=== PATIENT | male | born 1950 | race Caucasian/White ===

== ENCOUNTER 2017-09-21 17:37 | Inpatient (IN) | payer MEDICARE ==
[~2017-09-21] VITALS: Ht 175.3 cm; Wt 80.4 kg
[~2017-09-21 17:37] MED LIST: ALPR1; AMLO10 PO; AMLO5 PO; BUTASPCAF PO; DIAZ10 PO; GABA100 PO; HYDACE5 PO; HYDCHL25; HYDCHL25 PO; HYDMOR8 PO; IBUHYD PO; IBUP800 PO; Inderal 20 mg T20 MG PO; LISI20; META800 PO; METO50; METO50 PO; MIRT15; MIRT30; MORP10S; MORP30; NIFE10 PO; ONDA4ODT MM; OXYC10ER; OXYC80ER PO; Oxycontin60 MG PO; PARO20 PO; PENT400ER PO; RXHYDACE PO; Zofran Odt4 MG PO
[2017-09-21 18:11] LABS: BASOPHILS ABSOLUTE AUTO 0.04 K/mm3 (0.00-0.23); BASOPHILS PERCENT AUTO 0 % (0-2); EOSINOPHILS ABSOLUTE AUTO 0.25 K/mm3 (0.00-0.68); EOSINOPHILS PERCENT AUTO 3 % (0-6); Hematocrit 47.7 % (37.0-53.0); Hemoglobin 15.5 g/dL (13.5-17.5); IMMATURE GRAN ABSOLUTE AUTO 0.02 K/mm3 (0.00-0.10); IMMATURE GRAN PERCENT AUTO 0 % (0-1); LYMPHOCYTES ABSOLUTE AUTO 2.33 K/mm3 (0.84-5.20); LYMPHOCYTES PERCENT AUTO 25 % (21-46); MONOCYTES ABSOLUTE AUTO 0.84 K/mm3 (0.16-1.47); MONOCYTES PERCENT AUTO 9 % (4-13); Mean Corpuscular HGB 30.8 pg (26.0-34.0); Mean Corpuscular HGB Conc 32.5 g/dL (31.5-36.5); Mean Corpuscular Volume 95 fL (80-100); Mean Platelet Volume 9.7 fL (9.1-12.4); NEUTROPHILS ABSOLUTE AUTO 5.73 K/mm3 (1.96-9.15); NEUTROPHILS PERCENT AUTO 62 % (41-73); Platelet Count 330 K/mm3 (150-400); RDW Coefficient Variation 13.2 % (11.7-14.2); RDW Standard Deviation 46.2 fL (35.1-46.3); Red Blood Cell Count 5.04 M/mm3 (4.30-5.90); White Blood Cell Count 9.21 K/mm3 (4.00-11.30)
[2017-09-21 18:33] LABS: Alanine Aminotransfer (ALT/SGP 19 U/L (12-78); Albumin, Blood 3.8 g/dL (3.4-5.0); Albumin/Globulin Ratio 0.9 (0.8-1.8); Alk Phos 116 U/L (50-136); Anion Gap 5 mmol/L (6-16); Aspartate Aminotrans (AST/SGOT 13 U/L (12-37); Bilirubin, Total 0.2 mg/dL (0.1-1.0); Blood Urea Nitrogen 14 mg/dL (8-24); Bun/Creatinine Ratio 18.6 (12.0-20.0); CO2, Blood 28 mmol/L (21-32); Calcium, Blood 10.1 mg/dL (8.5-10.1); Chloride, Blood 111 mmol/L (98-108); Creatinine, Blood 0.75 mg/dL (0.60-1.20); Globulin, Blood 4.3 g/dL (2.2-4.0); Glomerular Filtration Rate >60 (60-); Glucose, Blood 123 mg/dL (70-99); Potassium, Blood 4.6 mmol/L (3.5-5.5); Sodium, Blood 144 mmol/L (136-145); Total Protein, Blood 8.1 g/dL (6.4-8.2)
[2017-09-21] MEDS ORDERED: Norvasc10 MG PO (23:28)
[2017-09-21 23:39] LABS: Source, Urine Clean Catch
[2017-09-21 23:45] LABS: Bilirubin, Urine Neg (Neg); Blood, Urine Neg (Neg); Glucose Qualitative, Urine Neg (Neg); Ketones, Urine Neg (Neg); Leukocyte Esterase, Urine Neg (Neg); Nitrite, Urine Neg (Neg); Protein, Urine Neg (Neg); Specific Gravity, Urine 1.015 (1.003-1.022); Urobilinogen, Urine NORM (Normal)
[2017-09-21 23:47] LABS: Appearance, Urine Clear (Clear); Color, Urine Yellow (P-Yellow)
[2017-09-22 08:21] LABS: BASOPHILS ABSOLUTE AUTO 0.05 K/mm3 (0.00-0.23); BASOPHILS PERCENT AUTO 1 % (0-2); EOSINOPHILS ABSOLUTE AUTO 0.25 K/mm3 (0.00-0.68); EOSINOPHILS PERCENT AUTO 3 % (0-6); Hematocrit 44.9 % (37.0-53.0); Hemoglobin 14.7 g/dL (13.5-17.5); IMMATURE GRAN ABSOLUTE AUTO 0.02 K/mm3 (0.00-0.10); IMMATURE GRAN PERCENT AUTO 0 % (0-1); LYMPHOCYTES ABSOLUTE AUTO 2.24 K/mm3 (0.84-5.20); LYMPHOCYTES PERCENT AUTO 25 % (21-46); MONOCYTES PERCENT AUTO 11 % (4-13); Mean Corpuscular HGB 30.7 pg (26.0-34.0); Mean Corpuscular HGB Conc 32.7 g/dL (31.5-36.5); Mean Corpuscular Volume 94 fL (80-100); Mean Platelet Volume 9.2 fL (9.1-12.4); NEUTROPHILS ABSOLUTE AUTO 5.33 K/mm3 (1.96-9.15); NEUTROPHILS PERCENT AUTO 60 % (41-73); Platelet Count 328 K/mm3 (150-400); RDW Coefficient Variation 13.1 % (11.7-14.2); RDW Standard Deviation 45.1 fL (35.1-46.3); Red Blood Cell Count 4.79 M/mm3 (4.30-5.90); White Blood Cell Count 8.89 K/mm3 (4.00-11.30)
[2017-09-22 08:58] LABS: Anion Gap 5 mmol/L (6-16); Blood Urea Nitrogen 15 mg/dL (8-24); Bun/Creatinine Ratio 22.2 (12.0-20.0); CO2, Blood 25 mmol/L (21-32); Calcium, Blood 8.9 mg/dL (8.5-10.1); Chloride, Blood 113 mmol/L (98-108); Creatinine, Blood 0.68 mg/dL (0.60-1.20); Glomerular Filtration Rate >60 (60-); Glucose, Blood 104 mg/dL (70-99); Sodium, Blood 143 mmol/L (136-145)
[2017-09-23 04:27] LABS: Anion Gap 7 mmol/L (6-16); Blood Urea Nitrogen 15 mg/dL (8-24); Bun/Creatinine Ratio 21.2 (12.0-20.0); CO2, Blood 25 mmol/L (21-32); Calcium, Blood 9.2 mg/dL (8.5-10.1); Chloride, Blood 108 mmol/L (98-108); Creatinine, Blood 0.71 mg/dL (0.60-1.20); Glomerular Filtration Rate >60 (60-); Glucose, Blood 97 mg/dL (70-99); Potassium, Blood 3.8 mmol/L (3.5-5.5); Sodium, Blood 140 mmol/L (136-145)
[2017-09-23] MEDS ORDERED: ASPI325 PO (08:35)
[2017-09-23] MEDS ORDERED: ATOR10 PO (08:35)
[2017-09-23] MEDS ORDERED: LOSA25 PO (08:35)
== END 2017-09-23 10:45 | disposition home or self-care (01) | DRG 69 ==
LOC: ER 17:37 → SURS 17:38
PROVIDERS: Emergency Medicine; Family Medicine; Hospitalist
DX: G45.9 Transient cerebral ischemic attack, unspecified (principal); I16.0 Hypertensive urgency; I10 Essential (primary) hypertension; I25.10 Atherosclerotic heart disease of native coronary artery without angina pectoris; M19.90 Unspecified osteoarthritis, unspecified site; Z66 Do not resuscitate; R51 Headache; F17.200 Nicotine dependence, unspecified, uncomplicated; Z88.2 Allergy status to sulfonamides; Z86.73 Personal history of transient ischemic attack (TIA), and cerebral infarction without residual deficits; Z87.891 Personal history of nicotine dependence; Z91.14 Patient's other noncompliance with medication regimen
CPT/HCPCS: 36415; 70450; 71046; 80048; 80053; 81003; 85025; 93005; 93010; 93306; 93880; J0360; J1650; Q0163

== ENCOUNTER 2018-05-29 05:31 | Emergency (ER) | payer MEDICARE ==
[~2018-05-29] VITALS: Ht 175.3 cm; Wt 74.8 kg
[~2018-05-29 05:31] MED LIST changes: +ASPI325 PO; +ATOR10 PO; +Hair, Skin & N1 EACH PO; +LOSA25 PO; +Norvasc10 MG PO; +THIA100 PO
[2018-05-29 05:42] LABS: BASOPHILS ABSOLUTE AUTO 0.04 K/mm3 (0.00-0.23); BASOPHILS PERCENT AUTO 0 % (0-2); EOSINOPHILS ABSOLUTE AUTO 0.26 K/mm3 (0.00-0.68); EOSINOPHILS PERCENT AUTO 3 % (0-6); Hematocrit 47.5 % (37.0-53.0); Hemoglobin 15.9 g/dL (13.5-17.5); IMMATURE GRAN ABSOLUTE AUTO 0.05 K/mm3 (0.00-0.10); IMMATURE GRAN PERCENT AUTO 1 % (0-1); LYMPHOCYTES ABSOLUTE AUTO 2.17 K/mm3 (0.84-5.20); LYMPHOCYTES PERCENT AUTO 22 % (21-46); MONOCYTES ABSOLUTE AUTO 0.83 K/mm3 (0.16-1.47); MONOCYTES PERCENT AUTO 8 % (4-13); Mean Corpuscular HGB 33.1 pg (26.0-34.0); Mean Corpuscular HGB Conc 33.5 g/dL (31.5-36.5); Mean Corpuscular Volume 99 fL (80-100); Mean Platelet Volume 9.2 fL (9.1-12.4); NEUTROPHILS ABSOLUTE AUTO 6.67 K/mm3 (1.96-9.15); NEUTROPHILS PERCENT AUTO 67 % (41-73); Platelet Count 314 K/mm3 (150-400); RDW Coefficient Variation 14.8 % (11.7-14.2); RDW Standard Deviation 54.3 fL (35.1-46.3); White Blood Cell Count 10.02 K/mm3 (4.00-11.30)
[2018-05-29 06:04] LABS: Alanine Aminotransfer (ALT/SGP 24 U/L (12-78); Albumin, Blood 3.7 g/dL (3.4-5.0); Albumin/Globulin Ratio 0.9 (0.8-1.8); Alk Phos 96 U/L (50-136); Anion Gap 11 mmol/L (6-16); Aspartate Aminotrans (AST/SGOT 21 U/L (12-37); Bilirubin, Total 0.4 mg/dL (0.1-1.0); Blood Urea Nitrogen 8 mg/dL (8-24); Bun/Creatinine Ratio 10.9 (12.0-20.0); CO2, Blood 22 mmol/L (21-32); Calcium, Blood 8.6 mg/dL (8.5-10.1); Chloride, Blood 107 mmol/L (98-108); Creatinine, Blood 0.74 mg/dL (0.60-1.20); Globulin, Blood 4.3 g/dL (2.2-4.0); Glomerular Filtration Rate >60 (60-); Glucose, Blood 88 mg/dL (70-99); Potassium, Blood 3.8 mmol/L (3.5-5.5); Sodium, Blood 140 mmol/L (136-145); Troponin I <0.015 ng/mL (0.000-0.040)
[2018-05-29] MEDS ORDERED: IBUP400 PO (06:34)
[2018-05-29] MEDS ORDERED: Vistaril50 MG PO (06:34)
== END 2018-05-29 07:07 | disposition home or self-care (01) ==
LOC: ER 05:31
PROVIDERS: Emergency Medicine
DX: R07.2 Precordial pain (principal); I10 Essential (primary) hypertension; F17.210 Nicotine dependence, cigarettes, uncomplicated; Z91.030 Bee allergy status; Z88.2 Allergy status to sulfonamides; Z86.73 Personal history of transient ischemic attack (TIA), and cerebral infarction without residual deficits
CPT/HCPCS: 71046; 80053; 83690; 84484; 85025; 93005; 93010; 96374; 99284-25; J1885

== ENCOUNTER 2018-07-07 00:36 | Inpatient (IN) | payer MEDICARE ==
[~2018-07-07] VITALS: Ht 175.3 cm; Wt 72.9 kg
[~2018-07-07 00:36] MED LIST changes: +IBUP400 PO; +Vistaril50 MG PO
[2018-07-07 01:16] LABS: BASOPHILS ABSOLUTE AUTO 0.04 K/mm3 (0.00-0.23); BASOPHILS PERCENT AUTO 0 % (0-2); EOSINOPHILS ABSOLUTE AUTO 0.29 K/mm3 (0.00-0.68); EOSINOPHILS PERCENT AUTO 3 % (0-6); Hemoglobin 16.1 g/dL (13.5-17.5); IMMATURE GRAN ABSOLUTE AUTO 0.03 K/mm3 (0.00-0.10); IMMATURE GRAN PERCENT AUTO 0 % (0-1); LYMPHOCYTES ABSOLUTE AUTO 1.88 K/mm3 (0.84-5.20); LYMPHOCYTES PERCENT AUTO 21 % (21-46); MONOCYTES ABSOLUTE AUTO 0.57 K/mm3 (0.16-1.47); MONOCYTES PERCENT AUTO 6 % (4-13); Mean Corpuscular HGB 33.6 pg (26.0-34.0); Mean Corpuscular HGB Conc 33.5 g/dL (31.5-36.5); Mean Corpuscular Volume 100 fL (80-100); Mean Platelet Volume 9.4 fL (9.1-12.4); NEUTROPHILS PERCENT AUTO 69 % (41-73); Platelet Count 267 K/mm3 (150-400); RDW Coefficient Variation 13.3 % (11.7-14.2); RDW Standard Deviation 49.8 fL (35.1-46.3); Red Blood Cell Count 4.79 M/mm3 (4.30-5.90); White Blood Cell Count 8.91 K/mm3 (4.00-11.30)
[2018-07-07] MEDS ORDERED: AMLO10 PO (01:28)
[2018-07-07 01:33] LABS: Alanine Aminotransfer (ALT/SGP 21 U/L (12-78); Albumin, Blood 3.5 g/dL (3.4-5.0); Albumin/Globulin Ratio 0.9 (0.8-1.8); Alk Phos 101 U/L (50-136); Anion Gap 9 mmol/L (6-16); Aspartate Aminotrans (AST/SGOT 15 U/L (12-37); Bilirubin, Total 0.2 mg/dL (0.1-1.0); Blood Urea Nitrogen 8 mg/dL (8-24); Bun/Creatinine Ratio 12.5 (12.0-20.0); CO2, Blood 23 mmol/L (21-32); Calcium, Blood 8.3 mg/dL (8.5-10.1); Chloride, Blood 111 mmol/L (98-108); Creatinine, Blood 0.64 mg/dL (0.60-1.20); Globulin, Blood 4.1 g/dL (2.2-4.0); Glomerular Filtration Rate >60 (60-); Glucose, Blood 97 mg/dL (70-99); International Normalized Ratio 0.96; Potassium, Blood 3.6 mmol/L (3.5-5.5); Prothrombin Time Results 10.2 Sec (9.7-11.5); Sodium, Blood 143 mmol/L (136-145); Total Protein, Blood 7.6 g/dL (6.4-8.2)
[2018-07-11] MEDS ORDERED: Aspir 8181 MG PO (11:14)
[2018-07-11] MEDS ORDERED: ATOR40TA PO (11:15)
[2018-07-11] MEDS ORDERED: LISI5 PO (11:16)
[2018-07-11] MEDS ORDERED: ROXICODONE5 MG PO (11:18)
== END 2018-07-11 11:40 | DRG 66 ==
LOC: ER 00:36 → MEDS 00:37
PROVIDERS: Emergency Medicine; ADMIT Hospitalist
DX: I63.9 Cerebral infarction, unspecified (principal); R53.1 Weakness; E78.5 Hyperlipidemia, unspecified; F17.210 Nicotine dependence, cigarettes, uncomplicated; I25.10 Atherosclerotic heart disease of native coronary artery without angina pectoris; I10 Essential (primary) hypertension; Z79.82 Long term (current) use of aspirin
CPT/HCPCS: 36415; 70450; 70496; 70551; 71045; 80053; 85025; 85610; 85730; 87081; 93005; 93010; 93306; 93880; 96372; 97110; 97116; 97162; 97166; 97530; 97535; 99285-25; G0378; G0515; J1650; Q9967

== ENCOUNTER 2018-07-16 15:35 | Emergency (ER) | payer MEDICARE, OTHER ==
[~2018-07-16] VITALS: Ht 175.3 cm; Wt 74.8 kg
[~2018-07-16 15:35] MED LIST changes: +ATOR40TA PO; +Aspir 8181 MG PO; +LISI5 PO; +ROXICODONE5 MG PO
[2018-07-16] MEDS ORDERED: ACET325 PO (15:54)
[2018-07-16 16:30] LABS: BASOPHILS ABSOLUTE AUTO 0.04 K/mm3 (0.00-0.23); BASOPHILS PERCENT AUTO 0 % (0-2); EOSINOPHILS ABSOLUTE AUTO 0.25 K/mm3 (0.00-0.68); EOSINOPHILS PERCENT AUTO 3 % (0-6); Hematocrit 47.4 % (37.0-53.0); Hemoglobin 15.8 g/dL (13.5-17.5); IMMATURE GRAN ABSOLUTE AUTO 0.03 K/mm3 (0.00-0.10); IMMATURE GRAN PERCENT AUTO 0 % (0-1); LYMPHOCYTES ABSOLUTE AUTO 1.67 K/mm3 (0.84-5.20); LYMPHOCYTES PERCENT AUTO 18 % (21-46); MONOCYTES PERCENT AUTO 10 % (4-13); Mean Corpuscular HGB 33.4 pg (26.0-34.0); Mean Corpuscular HGB Conc 33.3 g/dL (31.5-36.5); Mean Corpuscular Volume 100 fL (80-100); Mean Platelet Volume 10.7 fL (9.1-12.4); NEUTROPHILS ABSOLUTE AUTO 6.61 K/mm3 (1.96-9.15); NEUTROPHILS PERCENT AUTO 70 % (41-73); Platelet Count 310 K/mm3 (150-400); RDW Coefficient Variation 12.6 % (11.7-14.2); RDW Standard Deviation 47.1 fL (35.1-46.3); Red Blood Cell Count 4.73 M/mm3 (4.30-5.90)
[2018-07-16 17:13] LABS: International Normalized Ratio 1.03; Prothrombin Time Results 10.9 Sec (9.7-11.5)
[2018-07-16 17:31] LABS: Source, Urine Clean Catch
[2018-07-16 17:42] LABS: Bilirubin, Urine Neg (Neg); Blood, Urine Neg (Neg); Glucose Qualitative, Urine Neg (Neg); Ketones, Urine Neg (Neg); Leukocyte Esterase, Urine Neg (Neg); Nitrite, Urine Neg (Neg); Protein, Urine Neg (Neg); Urobilinogen, Urine NORM (Normal)
[2018-07-16 17:57] LABS: Appearance, Urine Clear (Clear); Color, Urine Yellow (P-Yellow)
[2018-07-16 18:47] LABS: Alanine Aminotransfer (ALT/SGP 29 U/L (12-78); Albumin, Blood 3.2 g/dL (3.4-5.0); Albumin/Globulin Ratio 0.9 (0.8-1.8); Alk Phos 109 U/L (50-136); Anion Gap 7 mmol/L (6-16); Aspartate Aminotrans (AST/SGOT 8 U/L (12-37); Bilirubin, Total 0.3 mg/dL (0.1-1.0); Blood Urea Nitrogen 8 mg/dL (8-24); Bun/Creatinine Ratio 11.2 (12.0-20.0); CO2, Blood 25 mmol/L (21-32); Calcium, Blood 8.3 mg/dL (8.5-10.1); Chloride, Blood 111 mmol/L (98-108); Creatinine, Blood 0.71 mg/dL (0.60-1.20); Globulin, Blood 3.5 g/dL (2.2-4.0); Glomerular Filtration Rate >60 (60-); Glucose, Blood 90 mg/dL (70-99); Potassium, Blood 4.1 mmol/L (3.5-5.5); Sodium, Blood 143 mmol/L (136-145); Total Protein, Blood 6.7 g/dL (6.4-8.2)
== END 2018-07-16 20:58 | disposition home or self-care (01) ==
LOC: ER 15:35
PROVIDERS: Emergency Medicine; Physician Assistant
DX: R51 Headache (principal); R53.1 Weakness; Z86.73 Personal history of transient ischemic attack (TIA), and cerebral infarction without residual deficits; E78.5 Hyperlipidemia, unspecified; Z88.2 Allergy status to sulfonamides; Z88.8 Allergy status to other drugs, medicaments and biological substances; Z79.899 Other long term (current) drug therapy; Z79.82 Long term (current) use of aspirin; F17.210 Nicotine dependence, cigarettes, uncomplicated
CPT/HCPCS: 36415; 70450; 80053; 81003; 85025; 85610; 85730; 93005; 93010; 96361; 96374; 99284-25; J2765; J7030

== ENCOUNTER 2018-09-02 19:49 | Observation (INO) | payer MEDICARE, OTHER ==
[~2018-09-02] VITALS: Ht 175.3 cm; Wt 72.2 kg
[~2018-09-02 19:49] MED LIST changes: +ACETAMINOPHEN500 MG PO; -ATOR40TA PO; +ATOR80 PO; -LISI5 PO; +Prinivil10 MG PO
[2018-09-02 20:23] LABS: BASOPHILS ABSOLUTE AUTO 0.03 K/mm3 (0.00-0.23); BASOPHILS PERCENT AUTO 0 % (0-2); EOSINOPHILS ABSOLUTE AUTO 0.23 K/mm3 (0.00-0.68); EOSINOPHILS PERCENT AUTO 3 % (0-6); Hematocrit 50.7 % (37.0-53.0); Hemoglobin 16.5 g/dL (13.5-17.5); IMMATURE GRAN ABSOLUTE AUTO 0.02 K/mm3 (0.00-0.10); IMMATURE GRAN PERCENT AUTO 0 % (0-1); LYMPHOCYTES PERCENT AUTO 25 % (21-46); MONOCYTES ABSOLUTE AUTO 0.81 K/mm3 (0.16-1.47); MONOCYTES PERCENT AUTO 10 % (4-13); Mean Corpuscular HGB Conc 32.5 g/dL (31.5-36.5); Mean Corpuscular Volume 98 fL (80-100); Mean Platelet Volume 9.4 fL (9.1-12.4); NEUTROPHILS ABSOLUTE AUTO 5.09 K/mm3 (1.96-9.15); NEUTROPHILS PERCENT AUTO 61 % (41-73); Platelet Count 295 K/mm3 (150-400); RDW Coefficient Variation 13.6 % (11.7-14.2); RDW Standard Deviation 50.2 fL (35.1-46.3); Red Blood Cell Count 5.15 M/mm3 (4.30-5.90); White Blood Cell Count 8.28 K/mm3 (4.00-11.30)
[2018-09-02 20:37] LABS: International Normalized Ratio 0.95; Prothrombin Time Results 10.1 Sec (9.7-11.5)
[2018-09-02] MEDS ORDERED: ONDA4ODT SL (21:23)
[2018-09-02 21:24] LABS: Alanine Aminotransfer (ALT/SGP 20 U/L (12-78); Albumin, Blood 3.8 g/dL (3.4-5.0); Albumin/Globulin Ratio 0.9 (0.8-1.8); Alk Phos 118 U/L (50-136); Anion Gap 6 mmol/L (6-16); Aspartate Aminotrans (AST/SGOT 7 U/L (12-37); Bilirubin, Total 0.5 mg/dL (0.1-1.0); Blood Urea Nitrogen 6 mg/dL (8-24); Bun/Creatinine Ratio 11.6 (12.0-20.0); CO2, Blood 26 mmol/L (21-32); Chloride, Blood 109 mmol/L (98-108); Creatinine, Blood 0.52 mg/dL (0.60-1.20); Globulin, Blood 4.2 g/dL (2.2-4.0); Glomerular Filtration Rate >60 (60-); Glucose, Blood 80 mg/dL (70-99); Sodium, Blood 141 mmol/L (136-145)
--- NOTE | 2018-09-03 04:15 | NUR ---
67 Y/O MALE RESTED QUIETLY ALL EVENING. PTS HAS RIGHT UPPER ARM DEFICITS AND SLIGHT ISSUE ORGANIZING THOUGHTS AT TIMES. PTS DENIES HEADACHE AFTER BEING GIVEN TYLENOL 650MG. PT BED ALARM ON. PTS BED IN LOW POSITION, CALL LIGHT AT SIDE.
--- NOTE | 2018-09-03 15:37 | NUR ---
SHIFT SUMMARY PATIENT FULLY A&O AND VERY FRUSTRATED WITH HIS CURRENT CONDITION. HE STATES HE IS TRYING REALLY HARD TO TELL HIS RIGHT ARM WHAT TO DO BUT IT'S NOT TRANSLATING. HE IS UNABLE TO CONTROL FINE MOTOR MOVEMENTS IN RIGHT ARM OR HAND. RIGHT ARM AND RIGHT LEG ARE EQUAL STRENGTH HOWEVER WHEN COMPARED TO LEFT. PATIENT HAVING SIMULAR DIFFICULTY WITH SPEECH. HE STATES HE KNOWS WHAT HE WANTS TO SAY BUT IS HAVING GREAT DIFFICULTY THINKING OF AND SPEAKING THE CORRECT WORDS. HE IS ABLE TO SPEAK IN FULL SENTANCES AND COMMUNICATE WHAT HE WANTS TO BUT IT TAKES HIM A LOT OF TIME AND ENERGY; PATIENT FINDS THIS EXTREMLY FRUSTRATING. HE IS OPTIMISTIC AND STATES THAT HE'S WILLING TO DO WHAT IT TAKES TO GET FULL FUNCTION BACK. AMBULATES X1 ASSIST, GAIT BELT AND FWW. LEGS NOT WEAK BUT HE LOOSES BALANCE SO MANAGER COMMERCIAL MUST BE READY FOR HIM TO STUMBLE TO EITHER SIDE.
--- NOTE | 2018-09-04 04:07 | NUR ---
67 Y/O MALE RESTED COMFORTABLY IN BED. PT AT BEGINNING SHIFT C/O SLIGHT HEADACHE WITH TYLENOL 650MG PO GIVEN WITH RELIEF FELT. PTS STILL HAVING DIFFICULTY WITH RIGHT HAND FINE MOTOR MOVEMENT AND ALSO REQUIRES BRIEF PERIOD OF HESTITATION TO ORGANIZE THOUGHTS BEFORE ANSWERING QUESTIONS FROM THIS NURSE OR ATTEMPTING TO PERFORM SIMPLE TASKS LIKE FEEDING SELF WITH A SPOON OR FORK. PT DENIES NAUSEA. PTS BED LOW POSITION, CALL LIGHT AT SIDE.
--- NOTE | 2018-09-04 14:31 | NUR ---
THIS PATIENT IS ALERT AND ORIENTED AND COOPERATIVE WITH CARE. HE HAS BEEN SEEN BY PHYSICAL AND OCCUPATIONAL THERAPY TODAY. WILL SEE SPEECH THERAPY AT SOME TIME TODAY. PT IS EAGER TO BE DISCHARGED. HIS SON IS AT THE BEDSIDE AND IS UPSET THAT THE PATIENT HASNT BEEN DISCHARGED. A LUGGER WILL COME TALK TO PATIENT AND FAMILY MEMBER. THE PT HAS A RIGHT HAND DEFICIT. WILL CONTINUE TO MONITOR.
--- NOTE | 2018-09-04 17:18 | NUR ---
PT WAS HOPING TO GO HOME TODAY. CASE MANAGEMENT TOLD HIM TODAY THAT THEY WILL TRY TO FIND PLACEMENT AT [facility]. THE PT'S STEP SON WAS AT THE BEDSIDE MOST OF THE DAY. THE PT IS COOPERATIVE AND KIND. WILL CONTINUE TO MONITOR. NO ACUTE CHANGES IN CARE.
--- NOTE | 2018-09-05 03:26 | NUR ---
SHIFT SUMMARY PT IS A&O, PLEASANT AND CO-OP WITH CARE. RESTING QUIETLY WATCHING TV DURING SHIFT REPORT. DENIED NEEDS. ADMITTED FOR STROKE WITH SOME EXPRESSIVE APHAGIA AND JERKINESS IN RUE. TONSORIAL ARTIST AND PEDAL/DORSA FLEXION EQUAL. POSSIBLE D/C TO [facility] TODAY. PT C/O VACA COMING ON AT HS, 01/18. MEDICATED WITH TYLENOL, BUT STILL NOT RESOLVED WHEN REASSESSED. ROXICODONE GIVEN PER EMAR. PT LATER REPORTED IT EFFECTIVE. NO FURTHER C/O. PT REPORTED MINIMUM RESIDUAL FROM STROKE AND STILL ABLE TO WALK AROUND SOME. CALL LT IN REACH.
--- NOTE | 2018-09-05 18:22 | NUR ---
SHIFT SUMMARY. A&OX4, CBA WITH FWW AND GB TO BATHROOM. PT WORKED WITH PT/OT/ST AND TOLERATED WELL. PT IS AGREEABLE TO SNF AT THIS TIME. PT WITH CHRONIC H/A, MANAGED WELL WITH CURRENT ORDERS. NO N/V, SOB. NO NEW CHANGES.
--- NOTE | 2018-09-06 04:30 | NUR ---
Shift summary: Pt c/o chronic headache. Pt given tylenol x 2 last pm to help with headache with adequate relief. Sleeping most of shift. Only stroke symptom noted was pt was having a hard time finding the words he wants to use. Pt awaiting a transfer to SNF in [place].
--- NOTE | 2018-09-06 14:36 | NUR ---
IV REMOVED. REPORT GIVEN TO IRU NURSE. PT DRESSED IN PERSONAL CLOTHES.
[2018-09-06] MEDS ORDERED: CLOP75 PO (15:05)
--- NOTE | 2018-09-06 15:26 | NUR ---
1515 PT DISCHARGED WITH W/C TRANSPORT. D/C PACKET WITH PT. NO NEW CHANGES.
== END 2018-09-06 15:14 ==
LOC: ER 19:49 → MEDS 19:50
PROVIDERS: Physician Assistant; ADMIT Hospitalist
DX: I63.9 Cerebral infarction, unspecified (principal); G81.91 Hemiplegia, unspecified affecting right dominant side; I10 Essential (primary) hypertension; I25.10 Atherosclerotic heart disease of native coronary artery without angina pectoris; F17.210 Nicotine dependence, cigarettes, uncomplicated; Z91.048 Other nonmedicinal substance allergy status; Z88.2 Allergy status to sulfonamides; Z79.899 Other long term (current) drug therapy; Z79.82 Long term (current) use of aspirin; Z79.02 Long term (current) use of antithrombotics/antiplatelets; Z86.73 Personal history of transient ischemic attack (TIA), and cerebral infarction without residual deficits
CPT/HCPCS: 70450; 70496; 80053; 85025; 85610; 87081; 92507; 92523; 93005; 93010; 96374-59; 97110; 97112; 97116; 97162; 97166; 97530; 97535; 99285-25; G0378; Q9967

== ENCOUNTER 2018-12-17 14:41 | Emergency (ER) | payer MEDICARE, OTHER ==
[~2018-12-17] VITALS: Ht 175.3 cm; Wt 74.8 kg
[~2018-12-17 14:41] MED LIST changes: +CLOP75 PO; +ONDA4ODT SL
[2018-12-17 15:31] LABS: BASOPHILS ABSOLUTE AUTO 0.05 K/mm3 (0.00-0.23); BASOPHILS PERCENT AUTO 1 % (0-2); EOSINOPHILS ABSOLUTE AUTO 0.17 K/mm3 (0.00-0.68); EOSINOPHILS PERCENT AUTO 2 % (0-6); Hematocrit 44.9 % (37.0-53.0); Hemoglobin 15.1 g/dL (13.5-17.5); IMMATURE GRAN ABSOLUTE AUTO 0.03 K/mm3 (0.00-0.10); IMMATURE GRAN PERCENT AUTO 0 % (0-1); LYMPHOCYTES PERCENT AUTO 19 % (21-46); MONOCYTES ABSOLUTE AUTO 0.66 K/mm3 (0.16-1.47); MONOCYTES PERCENT AUTO 9 % (4-13); Mean Corpuscular HGB 32.8 pg (26.0-34.0); Mean Corpuscular HGB Conc 33.6 g/dL (31.5-36.5); Mean Corpuscular Volume 98 fL (80-100); NEUTROPHILS ABSOLUTE AUTO 5.23 K/mm3 (1.96-9.15); NEUTROPHILS PERCENT AUTO 69 % (41-73); Platelet Count 371 K/mm3 (150-400); RDW Coefficient Variation 14.6 % (11.7-14.2); RDW Standard Deviation 52.6 fL (35.1-46.3); White Blood Cell Count 7.54 K/mm3 (4.00-11.30)
[2018-12-17 15:45] LABS: International Normalized Ratio 0.97; Prothrombin Time Results 10.3 Sec (9.7-11.5)
[2018-12-17 15:58] LABS: Alanine Aminotransfer (ALT/SGP 26 U/L (12-78); Albumin, Blood 3.8 g/dL (3.4-5.0); Albumin/Globulin Ratio 0.9 (0.8-1.8); Alk Phos 115 U/L (50-136); Anion Gap 5 mmol/L (6-16); Aspartate Aminotrans (AST/SGOT 17 U/L (12-37); Bilirubin, Total 0.6 mg/dL (0.1-1.0); Blood Urea Nitrogen 16 mg/dL (8-24); Bun/Creatinine Ratio 24.2 (12.0-20.0); CO2, Blood 25 mmol/L (21-32); Calcium, Blood 8.8 mg/dL (8.5-10.1); Chloride, Blood 110 mmol/L (98-108); Creatinine, Blood 0.66 mg/dL (0.60-1.20); Globulin, Blood 4.1 g/dL (2.2-4.0); Glomerular Filtration Rate >60 (60-); Glucose, Blood 96 mg/dL (70-99); Sodium, Blood 140 mmol/L (136-145); Total Protein, Blood 7.9 g/dL (6.4-8.2)
[2018-12-17 18:33] LABS: Source, Urine Clean Catch
[2018-12-17 18:39] LABS: Appearance, Urine Clear (Clear); Bilirubin, Urine Neg (Neg); Blood, Urine 2+ (Neg); Color, Urine Yellow (P-Yellow); Glucose Qualitative, Urine Neg (Neg); Ketones, Urine 1+ (Neg); Leukocyte Esterase, Urine 1+ (Neg); Nitrite, Urine Neg (Neg); Protein, Urine 1+ (Neg); Urobilinogen, Urine NORM (Normal)
[2018-12-17 18:48] LABS: Bacteria Few /hpf; Mucus Mod (0-Heavy); Squamous Epithelial Cells Few /hpf (Few)
== END 2018-12-17 20:07 | disposition home or self-care (01) ==
LOC: ER 14:41
PROVIDERS: Physician Assistant
DX: I10 Essential (primary) hypertension (principal); Z88.2 Allergy status to sulfonamides; Z88.8 Allergy status to other drugs, medicaments and biological substances; Z79.899 Other long term (current) drug therapy; Z79.82 Long term (current) use of aspirin; F17.210 Nicotine dependence, cigarettes, uncomplicated
CPT/HCPCS: 36415; 70450; 80053; 81001; 85025; 85610; 87086; 93005; 93010; 96374; 96375; 99284-25; J1100; J1200; J2765; J3010

== ENCOUNTER 2020-09-25 20:54 | Observation (INO) | payer MEDICARE, OTHER ==
[~2020-09-25] VITALS: Ht 175.3 cm; Wt 74.8 kg
== END 2020-09-26 02:14 | disposition home or self-care (01) ==
LOC: ER 20:54 → EOR 20:55
PROVIDERS: ADMIT Emergency Medicine
DX: S09.90XA Unspecified injury of head, initial encounter (principal); W18.30XA Fall on same level, unspecified, initial encounter; F10.129 Alcohol abuse with intoxication, unspecified; I10 Essential (primary) hypertension; F41.9 Anxiety disorder, unspecified; F32.9 Major depressive disorder, single episode, unspecified; F17.210 Nicotine dependence, cigarettes, uncomplicated; Z88.2 Allergy status to sulfonamides; Z79.899 Other long term (current) drug therapy; Z79.82 Long term (current) use of aspirin; Z86.73 Personal history of transient ischemic attack (TIA), and cerebral infarction without residual deficits
CPT/HCPCS: 36415; 70450; 71045; 72125; 80053; 81001; 84484; 85025; 93005; 93010; 96374; 96375; 99285-25; G0378; G0480; J2060; J3010

== ENCOUNTER 2021-07-23 07:20 | Inpatient (IN) | payer MEDICARE, OTHER ==
[~2021-07-23] VITALS: Ht 175.3 cm; Wt 75.1 kg
[~2021-07-23 07:20] MED LIST changes: +BACL20 PO; +BENZ1 PO; +CYMBALTA30 M2 PO; +REMERON30 M2 PO
[2021-07-23 08:19] LABS: BASOPHILS ABSOLUTE AUTO 0.03 K/mm3 (0.00-0.23); BASOPHILS PERCENT AUTO 1 % (0-2); EOSINOPHILS ABSOLUTE AUTO 0.09 K/mm3 (0.00-0.68); EOSINOPHILS PERCENT AUTO 1 % (0-6); Hematocrit 20.3 % (37.0-53.0); Hemoglobin 6.5 g/dL (13.5-17.5); IMMATURE GRAN ABSOLUTE AUTO 0.06 K/mm3 (0.00-0.10); IMMATURE GRAN PERCENT AUTO 1 % (0-1); LYMPHOCYTES ABSOLUTE AUTO 0.96 K/mm3 (0.84-5.20); LYMPHOCYTES PERCENT AUTO 15 % (21-46); MONOCYTES ABSOLUTE AUTO 0.29 K/mm3 (0.16-1.47); MONOCYTES PERCENT AUTO 5 % (4-13); Mean Corpuscular HGB 36.1 pg (26.0-34.0); Mean Corpuscular Volume 113 fL (80-100); Mean Platelet Volume 8.6 fL (9.1-12.4); NEUTROPHILS ABSOLUTE AUTO 5.06 K/mm3 (1.96-9.15); NEUTROPHILS PERCENT AUTO 78 % (41-73); NRBC ABSOLUTE 0.05 K/mm3 (0.00-0.02); NRBC Auto 0.8 /100 WBC (0.0-0.2); Platelet Count 403 K/mm3 (150-400); RDW Coefficient Variation 20.3 % (11.7-14.2); RDW Standard Deviation 81.1 fL (35.1-46.3); White Blood Cell Count 6.49 K/mm3 (4.00-11.30)
[2021-07-23 08:44] LABS: Influenza A, PCR NEGATIVE (NEGATIVE); Influenza B, PCR NEGATIVE (NEGATIVE); Resp Syncytial Virus, PCR NEGATIVE (NEGATIVE); SARS-Cov-2 (COVID-19) PCR, MMC NEGATIVE (NEGATIVE)
[2021-07-23 08:54] LABS: Alanine Aminotransfer (ALT/SGP 18 U/L (12-78); Albumin, Blood 3.1 g/dL (3.4-5.0); Albumin/Globulin Ratio 1.2 (0.8-1.8); Alk Phos 43 U/L (50-136); Anion Gap 11 mmol/L (6-16); Aspartate Aminotrans (AST/SGOT 12 U/L (12-37); Bilirubin, Total 0.4 mg/dL (0.1-1.0); Blood Urea Nitrogen 12 mg/dL (8-24); Bun/Creatinine Ratio 14.9 (12.0-20.0); CO2, Blood 18 mmol/L (21-32); Calcium, Blood 8.5 mg/dL (8.5-10.1); Chloride, Blood 111 mmol/L (98-108); Creatinine, Blood 0.81 mg/dL (0.60-1.20); Globulin, Blood 2.6 g/dL (2.2-4.0); Glomerular Filtration Rate >60 (60-); Glucose, Blood 124 mg/dL (70-99); Potassium, Blood 3.8 mmol/L (3.5-5.5); Sodium, Blood 140 mmol/L (136-145); Total Protein, Blood 5.7 g/dL (6.4-8.2)
[2021-07-23 14:12] LABS: Thyroid Stimulating Hormone 1.95 uIU/mL (0.360-4.800)
[2021-07-23 16:20] LABS: Hematocrit 29.5 % (37.0-53.0); Hemoglobin 9.9 g/dL (13.5-17.5)
--- NOTE | 2021-07-23 18:27 | NUR ---
PT ARRIVED IN THE UNIT FROM ED REPORT RECEIVED FROM NAWAF HARMON, PT IS HERE FOR ACUTE GI BLEED, ON PROTONIX GTT. VITALS UPON ARRIVAL HRR SINUS AT 70-80'S, BP SYSTOLIC 140'S, SATS ABOVE 95% ON RA AFEBRILE. PT WAS SUPER ANXIOUS UPON ARRIVAL C/O THIRST, ABD PAIN AND WANTING TO GET UP TO USE BSC. PT GOT UP VIA WALKER AND GAIT BELT TO BSC WAS SUPER WEAK AND HAD BLACK TARRY DIARRHEA STOOLS. PT WAS GIVEN FENTANYL IV PAIN SCALE 7/10 AND WAS EFFECTIVE ALSO WAS GIVEN ATIVAN FOR ANXIETY. PT THEN STARTED CALMING DOWN, WET SWABS GIVEN FOR COMFORT. GI CONSULTED PT TO BE NPO AFTER BREAKFAST IN AM, CLEAR LIQUID FOR NOW. SON GENE ALSO CALLED AND WAS GIVEN UPDATE REGARDING PT'S STATUS. PT NOW RESTING IN BED NS RUNNING AT 150MLS, CALL LIGHTS IN REACH, BED ALARM ON FOR SAFETY WILL REPORT TO ONCOMING SHIFT
[2021-07-23 22:27] LABS: Hematocrit 24.8 % (37.0-53.0); Hemoglobin 8.4 g/dL (13.5-17.5)
--- NOTE | 2021-07-24 00:55 | NUR ---
SPOKE WITH TWO WAY RADIO INSTALLER IN REGARDS TO DECREASING HGB, RECOMMENDED WATCHING THE MORNING ONE AND SEE, DUE TO RESULT BEING ABOVE 7. PROVIDER NOT INFORMED PER TWO WAY RADIO INSTALLER WILL CONTINUE TO MONITOR. ADDITIONALLY, PATINET HAS BEEN HAVING INCREASED ETOH WITHDRAWAL LIKE SYMPTOMS, MEDICATED PER EMAR WITH MODERATE IMPROVEMENT, PATIENT IS CURRENLTY SLEEPING, DECREASED AGITATION, HEADACHE, TREMOR, AND SWEATING.
--- NOTE | 2021-07-24 03:28 | NUR ---
END OF SHIFT: PATIENT BECAME INCREASINGLY MORE TREMULOUS DURING THE START OF SHIFT, WITH OBVIOUS PAROXYSMAL SWEATING, HEADACHE (WHICH COULD BE RELATED TO GI BLEEDING), SOME MENTATION CHANGE, LEGS WERE TENSE AND CONSTANTLY SHIFTING. ATIVAN AT 1 MG GIVEN, WITH INSTANT RELIEF, APPROXIAMATELY 2 HOURS LATER INCREASED CIWQ, 4 MG OF ATIVAN GIVEN CIWA WAS WORSE THAN PREVIOUS, LASTLY PATINET RECIEVED 2 MG ABOUT 2 MORE HOURS LATER. SINCE PATIENT HAS BEEN RESTING, WITHOUT THE AGREESIVE TREMOR, STILL HAVING SOME MENTATION CHANGE, BUT STILL ALERT AND ORIENTED THE SAME BEGGING OF SHIFT. DENIES CHEST PAIN, HAS A HIGHER RR OF 20'S WHEN AWAKE, HAS BEEN SLIGHTLY HTN, AND RANGING FROM SR HIGH 90'S TO ST OF AROUND 110. STILL PASSING GAS AND MULTIPLE TARRY STOOLS. PATIENT IS INCONTINENT OF BOWEL AND URINE AT THIS TIME. PATIENT HIMSELF IS CONSTANLTY REPOSITIONING, MULTIPLE MEDICATIONS HAVE BEEN RAN THROUGH HIS IV'S INCLUDING CONTINUOUS PROTONIX DRIP. TENDER AND PAINFUL TO TOUCH IN THE LLQ. PATIENT HAS BEEN AFEBRILE, BUT HAS BEEN BORDERLINE WARMER TEMPERATURES. WILL CONTINUE TO MONITOR.
[2021-07-24 04:04] LABS: BASOPHILS ABSOLUTE AUTO 0.01 K/mm3 (0.00-0.23); BASOPHILS PERCENT AUTO 0 % (0-2); EOSINOPHILS PERCENT AUTO 0 % (0-6); Hemoglobin 7.9 g/dL (13.5-17.5); IMMATURE GRAN ABSOLUTE AUTO 0.03 K/mm3 (0.00-0.10); IMMATURE GRAN PERCENT AUTO 0 % (0-1); LYMPHOCYTES ABSOLUTE AUTO 0.64 K/mm3 (0.84-5.20); LYMPHOCYTES PERCENT AUTO 8 % (21-46); MONOCYTES ABSOLUTE AUTO 0.77 K/mm3 (0.16-1.47); MONOCYTES PERCENT AUTO 10 % (4-13); Mean Corpuscular HGB 34.2 pg (26.0-34.0); Mean Corpuscular HGB Conc 32.9 g/dL (31.5-36.5); Mean Corpuscular Volume 104 fL (80-100); Mean Platelet Volume 8.7 fL (9.1-12.4); NEUTROPHILS PERCENT AUTO 81 % (41-73); NRBC ABSOLUTE 0.05 K/mm3 (0.00-0.02); NRBC Auto 0.6 /100 WBC (0.0-0.2); Platelet Count 362 K/mm3 (150-400); RDW Coefficient Variation 23.9 % (11.7-14.2); RDW Standard Deviation 86.1 fL (35.1-46.3); Red Blood Cell Count 2.31 M/mm3 (4.30-5.90); White Blood Cell Count 7.75 K/mm3 (4.00-11.30)
[2021-07-24 04:25] LABS: Alanine Aminotransfer (ALT/SGP 20 U/L (12-78); Albumin, Blood 2.6 g/dL (3.4-5.0); Albumin/Globulin Ratio 0.9 (0.8-1.8); Alk Phos 39 U/L (50-136); Anion Gap 6 mmol/L (6-16); Aspartate Aminotrans (AST/SGOT 13 U/L (12-37); Bilirubin, Total 0.4 mg/dL (0.1-1.0); Blood Urea Nitrogen 11 mg/dL (8-24); Bun/Creatinine Ratio 14.6 (12.0-20.0); CO2, Blood 21 mmol/L (21-32); Calcium, Blood 7.6 mg/dL (8.5-10.1); Chloride, Blood 109 mmol/L (98-108); Creatinine, Blood 0.75 mg/dL (0.60-1.20); Globulin, Blood 2.8 g/dL (2.2-4.0); Glomerular Filtration Rate >60 (60-); Glucose, Blood 137 mg/dL (70-99); Potassium, Blood 3.3 mmol/L (3.5-5.5); Sodium, Blood 136 mmol/L (136-145); Total Protein, Blood 5.4 g/dL (6.4-8.2)
[2021-07-24 10:40] LABS: Source, Urine Foley catheter
[2021-07-24 11:00] LABS: Bilirubin, Urine Neg (Neg); Blood, Urine 3+ (Neg); Glucose Qualitative, Urine 2+ (Neg); Ketones, Urine 1+ (Neg); Leukocyte Esterase, Urine Neg (Neg); Nitrite, Urine Neg (Neg); Protein, Urine 1+ (Neg); Urobilinogen, Urine NORM (Normal)
[2021-07-24 11:02] LABS: Appearance, Urine Clear (Clear); Color, Urine Yellow (P-Yellow)
[2021-07-24 11:03] LABS: U Amphetamine Screen Not Detected; U Barbituate Screen Not Detected; U Benzodiazapine Screen DETECTED; U Buprenorphine Screen Not Detected; U Cannabinoids Screen Not Detected; U Cocaine Screen Not Detected; U Methadone Screen Not Detected; U Methamphetamine Screen Not Detected; U Opiates Screen Not Detected; U Oxycodone Screen Not Detected; U Phencyclidine Screen Not Detected; U Propoxyphene Screen Not Detected
[2021-07-24 11:05] LABS: Bacteria Rare /hpf; Mucus Light (0-Heavy); Red Blood Cells, Urine 0-2 /hpf (0-2); Squamous Epithelial Cells Few /hpf (Few); White Blood Cells, Urine 0-2 /hpf (0-5)
[2021-07-24 11:06] LABS: Hyaline Casts 0-2 /lpf (0-2)
[2021-07-24 11:08] LABS: HBSAG SCREEN Negative (Negative); HEP B CORE AB, TOT Negative (Negative); HEP C VIRUS AB 0.4 (0.0-0.9)
--- NOTE | 2021-07-24 13:24 | NUR ---
07/24/21 1326 Rocky Spangler History, Chart, Medications and Allergies reviewed before start of procedure.EKG MONITORED DURING PROCEDURE. MONITOR INTACT WITH CONTINUOUS PULSE OXIMETRY AND INTERMITTENT BP. O2 VIA POM MASK INTACT THROUGHOUT SEDATION/PROCEDURE. Bite Block Placed, WILL REMOVE AFTER PROCEDURE. See Anesthesia record/DR PETER.
[2021-07-24 14:27] LABS: Adenovirus F 40/41 Not Detected (NOT DETECT); Astrovirus Not Detected (NOT DETECT); Campylobacter Sp Not Detected (NOT DETECT); Cryptosporidium Not Detected (NOT DETECT); Cyclospora Cayetanensis Not Detected (NOT DETECT); E. Coli O157 Not Detected (NOT DETECT); Entamoeba Histolytica Not Detected (NOT DETECT); Enteroaggregative E. coli-EAEC Not Detected (NOT DETECT); Enteropathogenic E. coli-EPEC Not Detected (NOT DETECT); Enterotoxigenic E. coli-ETEC Not Detected (NOT DETECT); Giardia Lamblia Not Detected (NOT DETECT); Norovirus GI/GII Not Detected (NOT DETECT); Plesiomonas Shigelloides Not Detected (NOT DETECT); Rotavirus A Not Detected (NOT DETECT); Salmonella Sp Not Detected (NOT DETECT); Sapovirus Not Detected (NOT DETECT); Shiga Toxin-prod E. coli-STEC Not Detected (NOT DETECT); Shigella/Enteroin E. coli-EIEC Not Detected (NOT DETECT); Vibrio Cholerae Not Detected (NOT DETECT); Vibrio Sp Not Detected (NOT DETECT); Yersinia Enterocolitica Not Detected (NOT DETECT)
[2021-07-24 16:45] LABS: Hemoglobin 7.7 g/dL (13.5-17.5)
--- NOTE | 2021-07-24 17:31 | NUR ---
PT SUMMARY: PT HAD ENDOSCOPY DONE TODAY, CLEAR DIET RESUMED. PT HAS ISHEMIC COLITIS, PT TO CONTINUE IV ABO AND BOWEL REST FOR NOW, IV FLUIDS RESUMED PER DR TERRY TO MAINTAIN BP SYSTOLIC 130-140'S. VITALS HRR SR/ST 90-110'S, SATS ABOVE 90% ON RA, AFEBRILE. PT O2 LEVEL DROP TO 87% AFTER PROCEDURE WHILE SLEEPING 2L OF O2 APPLIED VIA NASAL CANNULA SATS MAINTAINED ABOVE 90%. PT WAS AGITATED THIS MORNING WAS GIVEN TOTAL 4MG OF ATIVAN BEFORE THE PROCEDURE PT WONT STAY IN BED WAS PULLING ON LINES, ALERT TO SELF AND PLACE, DISORIENTED TO DATE AND TIME, HAS TREMORS, FEELIING DIZZY, C/O HEADACHE AND ABD PAIN, PROVIDER MADE AWARE TO MONITOR PT FOR ANY FOCAL ABNORMALITY. SILVIO VEST ON, BED ALARM ON FOR SAFETY. PT WAS GIVEN IV LEVSIN, FENTANYL AND ATIVAN TO HELP PT WITH HEADACHE, ABD SPASM. CIWA 13-15. UTOX, BLOOD ALCOHOL AND AMMONIA LEVELS CAME BACK NEGATIVE. PROTONIX GTT DC'D, NS NOW RUNNING AT 150MLS/HR. CRUZ IN PLACE PT WAS BLADDER SCANNED AND WAS RETAINING >350MLS OF URINE OUTPUT, UA SENT TO LAB FOR UTOX AND UA. PT NOW IN BED RESTING AND IS CALM AT THE MOMENT, ABLE TO TOLERATE PO CLEAR DIET. PT ALSO CONTINUES TO HAVE BLACK TARRY LOOSE STOOLS, GI PANEL CAME BACK NEGATIVE. STEP NOHEMY MIGUEL WAS GIVEN AN UPDATE REGARDING PT'S STATUS. WILL REPORT TO ONCOMING SHIFT
--- NOTE | 2021-07-24 20:03 | NUR ---
1930 UPON ENTERING PATIENT'S ROOM, PATIENT WAS FOUND TO BE DIAPHORETIC, RESTLESS, AGITATED AND TRYING TO CLIMB OUT OF BED. AFTER FURTHER ASSESSMENT PATIENT IS REPORTING AUDITORY HALLUCINATIONS AND 5/10 HEADACHE. TYLENOL GIVEN BY PREVIOUS SHIFT. SILVIO VEST IN PLACE. RIGHT FOREARM IV WAS PULLED BY PATIENT AND FOUND TO BE IN THE BED. CALL PLACED TO HOSPITALIST, ORDER RECIEVED FOR 50-100MG OF LIBRIUM AND FOR PATIENT TO RECIEVE FULL DOSE PER HOSPITALIST. RN AND cake winder AT BEDSIDE ATTEMPTING TO KEEP PATIENT IN BED. PATIENT STATING "I NEED TO GET OUT OF BED, I NEED TO PEE" PATIENT REMINDED THAT HE HAS A CRUZ IN PLACE.
--- NOTE | 2021-07-24 21:40 | NUR ---
TRANSFER PATIENT MEDICATED WITH 4MG ATIVAN AFTER 100MG OF LIBRIUM WAS GIVEN WITH NO CHANGE IN SYMPTOMS. PATIENT CONTINUES TO BE RESTLESS, THRASHING IN BED AND ATTEMPTING TO GET OUT OF BED. PATIENT ALSO CONTINUES TO PULL AT LINES AND HAS A COMPLAINT OF A HEADACHE. CALL PLACED TO HOSPITALIST WITH ORDERS TO TRANSFER TO ICU. REPORT GIVEN TO SEATING AND MOBILITY TECHNOLOGIST AND PATIENT TRANSFERRED VIA HOSPITAL BED WITH PCU STAFF AND IS ACCOMPANIED WITH HIS BELONGINGS.
--- NOTE | 2021-07-24 23:30 | NUR ---
ASSUMPTION OF CARE PT ARRIVED TO ICU VIA SILVIO GARRETT ON UPON ARRIVAL. TX TO ICU BED VIA SLIDER SHEET. PT VERY RESTLESS, ATTEMPTING TO GET OUT OF BED, NOT CONSISTENLY FOLLOWING COMMANDS. WHEN ASKED WHATS WRONG, PT OCCASIONALLY STATES "MY HEAD". PT WILL STATE HIS NAME, INCONSISTENTLY RESPONDS TO QUESTIONING. PT WITH ONE IV IN R WRIST, SECOND IV STARTED ON L FOREARM. 25 MCG FENTANYL GIVEN FOR SEVERE HEAD PAIN. PRECEDEX GTT INITIATED DUE TO PT CONSTANTLY TRYING TO GET OUT OF BED AND PULLING AT LINES/ CORDS. PT APPEARS TO POSSIBLY BE IN ETOH W/D. PT MEDICATED c ATIVAN PRIOR TO ARRIVAL TO ICU WITH NO APPARENT RELIEF. CRUZ CATH PATENT DRAINING YELLOW URINE. BP STABLE. ABD c BT'S X 4 QUADRANTS. NO EVIDENT SIGNS OF GI BLEEDING AT THIS TIME. THIS NURSE CONTACTED HOSPITALIST DUE TO PTS C/O HEAD PAIN, CONSIDERING HIS PAST HISTORY OF STROKE, CT WAS ORDERED. CT RESULTS SHOW NO ACUTE FINDINGS. WILL CONTINUE TO MONITOR.
--- NOTE | 2021-07-25 01:39 | NUR ---
UPDATE FROM FAMILY/ CAREGIVER PTS SON MYRIAM CALLED THE ICU MULTIPLE TIMES WHILE THIS NURSE WAS SETTLING/ TREATING PT. THIS NURSE CALLED MYRIAM BACK, MAIN POINTS OF CONVERSATION BELOW, INFORMATION OBTAINED FROM MYRIAM ACHARYA WHO IS PTS PRIMARY TUBING SUPERVISOR. PT HAS A PAST HISTORY OF ETOH ABUSE BUT IS NO LONGER ABLE TO ACQUIRE ETOH DUE TO DEFICIT SECONDARY TO PRIOR STROKE. PT HAS SPENT TIME WORKING WITH SPEECH THERAPY BUT REMAINS UNABLE TO COMMUNICATE EFFECTIVELY. PT ALSO LOST COORDINATION SECONDARY TO STROKE, HE IS ABLE TO WALK SHORT DISTANCES IN HOME BUT VERY UNCOORDINATED. THESE PAST FEW MONTHS PTS MENTAL STATUS HAS BEEN SLOWLY DETERIORATING. HE HAS BEEN SLEEPING ALL DAY, MAX HAS TO WAKE PT TO ASSIST WITH MEALS AND MEDICATIONS. MYRIAM IS ADAMANT THAT PT IS NOT DRINKING ALCOHOL NOR TAKING ANY RECREATIONAL DRUGS, MYRIAM LIVES NEXT DOOR AND CARES FOR PT. MYRIAM WOULD LIKE TO COME TO PTS BEDSIDE, HE STATES HE CAN CONSOLE PT. MYRIAM ACHARYA- [phone]
[2021-07-25 03:43] LABS: Hematocrit 20.4 % (37.0-53.0); Hemoglobin 6.8 g/dL (13.5-17.5); Mean Corpuscular HGB 34.3 pg (26.0-34.0); Mean Corpuscular HGB Conc 33.3 g/dL (31.5-36.5); Mean Corpuscular Volume 103 fL (80-100); Mean Platelet Volume 8.7 fL (9.1-12.4); NRBC ABSOLUTE 0.02 K/mm3 (0.00-0.02); NRBC Auto 0.3 /100 WBC (0.0-0.2); Platelet Count 334 K/mm3 (150-400); RDW Coefficient Variation 22.4 % (11.7-14.2); RDW Standard Deviation 82.2 fL (35.1-46.3); Red Blood Cell Count 1.98 M/mm3 (4.30-5.90); White Blood Cell Count 6.72 K/mm3 (4.00-11.30)
[2021-07-25 04:04] LABS: Alanine Aminotransfer (ALT/SGP 20 U/L (12-78); Albumin, Blood 2.1 g/dL (3.4-5.0); Albumin/Globulin Ratio 0.7 (0.8-1.8); Alk Phos 37 U/L (50-136); Anion Gap 7 mmol/L (6-16); Aspartate Aminotrans (AST/SGOT 18 U/L (12-37); Bilirubin, Total 0.6 mg/dL (0.1-1.0); Blood Urea Nitrogen 10 mg/dL (8-24); Bun/Creatinine Ratio 16.3 (12.0-20.0); CO2, Blood 22 mmol/L (21-32); Calcium, Blood 7.4 mg/dL (8.5-10.1); Chloride, Blood 110 mmol/L (98-108); Creatinine, Blood 0.61 mg/dL (0.60-1.20); Globulin, Blood 2.9 g/dL (2.2-4.0); Glomerular Filtration Rate >60 (60-); Glucose, Blood 107 mg/dL (70-99); Potassium, Blood 3.4 mmol/L (3.5-5.5); Sodium, Blood 139 mmol/L (136-145)
[2021-07-25 05:06] LABS: BAND PERCENT MAN 7 % (0-8); BASOPHILS PERCENT MAN 0 % (0-2); EOSINOPHILS PERCENT MAN 0 % (0-6); LYMPHOCYTES ABSOLUTE MAN 0.33 K/mm3 (0.84-5.20); LYMPHOCYTES PERCENT MAN 5 % (21-46); MONOCYTES PERCENT MAN 9 % (4-13); NEUTROPHILS ABSOLUTE MAN 5.77 K/mm3 (1.96-9.15); SEG NEUTROPHILS PERCENT MAN 79 % (41-73); TOTAL CELLS COUNTED 100
--- NOTE | 2021-07-25 06:21 | NUR ---
SHIFT SUMMARY PT GIVEN SHORT BREAK FROM PRECEDEX THIS AM TO REASSESS MENTAL STATUS. PT REMAINS CONFUSED, HE WAS ABLE TO ASK "WHERE AM I" BUT WOULD QUICKLY FORGET THE ANSWER. ASKING FOR HIS SON "MAX". PT BECAME VERY AGITATED, BEGAN PULLING AT IV'S AND CORDS, ATTEMPTING TO GET OUT OF BED. PRECEDEX BACK ON @ 0.5MCG/KG/HR. MEDICATED PT MULTIPLE TIMES WITH PRN FENTANYL FOR PAIN. 1 UNIT PRBC'S INFUSING AT THIS TIME. NO OBVIOUS SIGNS OF BLEEDING. NO BM THIS SHIFT. CRUZ CATH DRAINING DK URINE. PT REMAINS IN LORAINE SOFT RESTRAINTS. VSS. WILL CONTINUE TO MONITOR.
--- NOTE | 2021-07-25 09:00 | NUR ---
UPDATE: HOSP ROUNDING DR TERRY @ BEDSIDE FOR AM ROUNDS. DISCUSSED PT's CONTINUED DEC LOC & CONFUSION. AWAITING RADIOLOGY READ OF HEAD CT. DR TERRY TO DISCUSS FURTHER DIAGNOSTICS W/ IR. PT's CAREGIVER HAS CALLED AND LEFT SEVERAL MESSAGES, DR TERRY GIVEN CAREGIVER's # FOR AN UPDATE & RN TO F/U ONCE AVAILABLE.
--- NOTE | 2021-07-25 12:45 | NUR ---
UPDATE: PALLIATIVE CARE MEETING. MAURO, PALLIATIVE CARE RN, & PT'S SON, MYRIAM, AT BEDSIDE TO DISCUSS PT'S PROGRESSION & PLAN OF CARE. SEE PALLIATIVE CARE NOTATION. SON APPEARS RECEPTIVE TO RN EDUCATION ON PT'S CURRENT ILLNESS. SON EXPRESSES HIS CONCERN THAT THE PT DOES NOT NEEDLESSLY "SUFFER" & THAT HE REMAIN COMFORTABLE. CONCERNS ADDRESSED & SON EDUCATED ON MEDS THE PT IS RECEIVING TO REMAIN COMFORTABLE. IN DISCUSSING PT's BASELINE, SON STS THE PT IS ABLE TO WALK, HOWEVER HIS COORDINATION IS POOR. HE LIVES ALONE IN HIS HOME & @ TIMES BECOMES VERY CONFUSED, INSISTING HE "WALK TO THE STORE". SON IS UNABLE TO STATE FOR CERTAIN THAT THE PT IS NOT USING ETOH, HOWEVER HE HAS NOT FOUND BOTTLES/CANS & HAS NOT BEEN GIVING THE PT ETOH. HE DOES NOT BELIEVE THE PT IS SUFFERING FROM WITHDRAWAL, & EXPLAINS THE PT DOES BECOME CONFUSED TO THE POINT OF AGGRESSION & IS DIFFICULT TO CONSOLE.
--- NOTE | 2021-07-25 13:18 | NUR ---
Pt lives in an apartment across the [place] from his son's. Son Trenton states he assists pt with ADL's, eating, bathing. Trenton also reports pt has had 2 prior strokes; more about these in H&P. Up until 2 weeks ago, pt was at his baseline. Then, pt stopped eating and drinking almost completely. He began sleeping most of the time, Trenton then sent him to the ED, and pt was admitted to ICU 11. He is currently in soft restraints and on precedex, as he continued attempting to pull out IV's. Met with pt's son Trenton at bedside as Alem, bedside RN gave him an update. The pt woke up and spoke to Trenton a bit, stated he's confused about why he's here, and ended up drifting back to sleep. Per Alem, Dr. Hawkins is going to attempt to correct the bowel with iv fluds and iv antibiotics initially. Will update pt's son Trenton daily.
[2021-07-25 15:29] LABS: Hematocrit 22.2 % (37.0-53.0); Hemoglobin 7.4 g/dL (13.5-17.5)
--- NOTE | 2021-07-25 18:34 | NUR ---
SHIFT SUMMARY: PT RESTING W/ EYES CLOSED, RR EVEN & UNLABORED. PRECEDEX @ 0.5mcg/kg/hr. WHEN DISTURBED, PT AWAKES & BEGINS TO YELL & PULL @ RESTRAINTS, @ TIMES KICKING LEGS OVER BED RAILS. AFTER SEVERAL MINS OF REDIRECTION, PT IS ABLE TO BE CONSOLED. PRN FENTANYL IS VERY HELPFUL IN CALMING PT, PER PT'S SON HE DOES HAVE SOME CHRONIC PAIN & WAS OPIATE DEPENDENT SEVERAL YEARS AGO. SEDATION VACATIONS UNSUCCESSFUL, PT BECAME AGITATED & DISPLAYING SELF ENDANGERING BEHAVIOR, THRASHING IN BED. PER HARRISON's NOTATIONS, CT ANGIO OF ABD VESSELS DID NOT SHOW ANY STENOSIS & IR WILL NOT BE CONSULTED AT THIS TIME.PLAN TO CONTINUE SUPPORTIVE CARE & CONTINUE W/ GI CONSULT. H&H IMPROVED.
--- NOTE | 2021-07-25 19:34 | NUR ---
Assumed care. Report received from emerson HARMON. Pt resting in bed, on 02 via NC, 2 L/min. Pt has IV access in left and right forearm. NS running at 100 ml/hr. Guadarrama catheter in place. No acute needs at this time, will continue to monitor.
[2021-07-26 03:34] LABS: BASOPHILS ABSOLUTE AUTO 0.01 K/mm3 (0.00-0.23); BASOPHILS PERCENT AUTO 0 % (0-2); EOSINOPHILS ABSOLUTE AUTO 0.07 K/mm3 (0.00-0.68); EOSINOPHILS PERCENT AUTO 1 % (0-6); Hematocrit 24.3 % (37.0-53.0); IMMATURE GRAN ABSOLUTE AUTO 0.02 K/mm3 (0.00-0.10); IMMATURE GRAN PERCENT AUTO 0 % (0-1); LYMPHOCYTES ABSOLUTE AUTO 0.56 K/mm3 (0.84-5.20); LYMPHOCYTES PERCENT AUTO 10 % (21-46); MONOCYTES ABSOLUTE AUTO 0.54 K/mm3 (0.16-1.47); MONOCYTES PERCENT AUTO 9 % (4-13); Mean Corpuscular HGB 33.3 pg (26.0-34.0); Mean Corpuscular HGB Conc 32.9 g/dL (31.5-36.5); Mean Corpuscular Volume 101 fL (80-100); Mean Platelet Volume 8.7 fL (9.1-12.4); NEUTROPHILS ABSOLUTE AUTO 4.72 K/mm3 (1.96-9.15); NEUTROPHILS PERCENT AUTO 80 % (41-73); NRBC ABSOLUTE 0.02 K/mm3 (0.00-0.02); NRBC Auto 0.3 /100 WBC (0.0-0.2); Platelet Count 326 K/mm3 (150-400); RDW Coefficient Variation 21.3 % (11.7-14.2); RDW Standard Deviation 77.1 fL (35.1-46.3); White Blood Cell Count 5.92 K/mm3 (4.00-11.30)
[2021-07-26 03:55] LABS: Alanine Aminotransfer (ALT/SGP 19 U/L (12-78); Albumin, Blood 2.1 g/dL (3.4-5.0); Albumin/Globulin Ratio 0.7 (0.8-1.8); Alk Phos 46 U/L (50-136); Anion Gap 6 mmol/L (6-16); Aspartate Aminotrans (AST/SGOT 18 U/L (12-37); Bilirubin, Total 0.4 mg/dL (0.1-1.0); Blood Urea Nitrogen 6 mg/dL (8-24); Bun/Creatinine Ratio 10.8 (12.0-20.0); CO2, Blood 23 mmol/L (21-32); Calcium, Blood 7.5 mg/dL (8.5-10.1); Chloride, Blood 110 mmol/L (98-108); Creatinine, Blood 0.56 mg/dL (0.60-1.20); Globulin, Blood 2.9 g/dL (2.2-4.0); Glomerular Filtration Rate >60 (60-); Glucose, Blood 98 mg/dL (70-99); Potassium, Blood 3.3 mmol/L (3.5-5.5); Sodium, Blood 139 mmol/L (136-145)
--- NOTE | 2021-07-26 06:22 | NUR ---
Shift summary. Pt rested in bed throughout shift, alert to self but confused about surroundings at times. Pt c/o headache during entire shift. Medicated with PRN fentanyl and tylenol, Dr Black contacted during first part of shift and order obtained for one-time dose of dilaudid 1mg with good results. This am, Dr Glaser contacted for headache pain, one time dose of Fioricet given, pt reported no relief. Guadarrama catheter in place, 900 out this shift. VS stable. See shift assessment for further details. Will continue to monitor and report off to dayshift RN.
--- NOTE | 2021-07-26 08:27 | NUR ---
ASSUMED CARE OF PATIENT 0700: AOX2, DISORIENTED TO TIME/EVENT, SLOW TO RESPOND, COOPERATIVE, COMPLAINS OF PAIN HEADACHE FENT PRN GIVEN, NSR 80S, WEAK DORSAL PALPATION PULSES, NON TENDER ABDOMEN TODAY, AUDIBLE ALL 4 QUADRANTS, CRUZ DRAINING CLEAR UOP, K 20 MEQS STARTED, NS IVMF RUNNING, TOLERATING CLEAR LIQUID DIET, WILL CONTINUE TO MONITOR.
--- NOTE | 2021-07-26 17:29 | NUR ---
AOX2 BEST, DISORIENTED TO SITUATION/EVENT, COMPLAINS OF CHRONIC H/A 01/18, PERCOCET ORDER ADDED WELL FENT PRN WITH LITTLE EFFECT, PT ABLE TO SLEEP FOR A COUPLE HOURS HOWEVER, FOLLOWS COMMANDS/COOPERATIVE, HTN 130-150S, NSR 80S, +2/+1 PULSES RESPECTIVELY, LUNGS CLEAR/DIM, ABDOMEN MIXED TENDERNESS LLQ, AUDIBLE BOWELS, CRUZ ADEQUATE UOP CLEAR/YELLOW, UPDATED SON MAX BY PHONE, WILL CONTINUE TO MONITOR AND REPORT TO NIGHT RN.
--- NOTE | 2021-07-26 19:30 | NUR ---
RECEIVED REPORT FROM EDEN ROLLINS. PT SITTING IN RECLINED POSITION IN BED, NASAL CANNULA IN SIDEWAYS AND PATIENT ASKS "IS THIS RIGHT?". PT VERY HARD OF HEARING NEEDING TO SPEAK LOUDLY FOR HIM. HE IS ORIENTED TO SELF, PLACE, MONTH, PRESI- DENT, BUT UNSURE TO REASON HE IS HERE. SPOKE TO HIM ABOUT HIS LOW HGB AND THE NEED FOR BLOOD AND ANTIBIOTICS. HE VERBALIZED UNDERSTANDING. HE DENIES ANY PAIN IN HIS ABDOMEN AT THIS TIME, STATES IT WENT AWAY A COULE OF HOURS AGO. DOES COMPLAIN OF HEAD PAIN, STATES THAT IT IS CHRONIC FROM HIS BRAIN SURGERY YEARS AGO. HE REPEATS HIMSELF REGARDING THE BRAIN SURGERY. HE IS PLEASANT, COOPERATIVE AND FOLLOWING DIRECTIONS. SEE ASSESSMENT FOR MORE DETAILS.
--- NOTE | 2021-07-27 00:18 | NUR ---
RAY HAS BEEN APPROPRIATE, POLITE AND COOPERATIVE. HE SAID HE IS UNABLE TO FALL ASLEEP AT THIS TIME BUT IS TRYING TO REST. HE DOES SAY HE WOULD LIKE TO GO HOME, HOPING HIS "BAGS" WILL BE DONE SOON (REFERRING TO HIS ANTIBIOTICS). WILL CONTINUE TO MONITOR,TREAT AND CARE FOR PATIENT.
--- NOTE | 2021-07-27 05:59 | NUR ---
SEE DOWN TIME FORM FOR LAST 6 HOURS OF CHARTING. PT IS NOW FINALLY SLEEPING. NS CONTINUES @ 150ML/HR, CRUZ WITH OVER 4L OUT. CONTINUES TO BE MEDICATED FOR HEADACHE T/O THE SHIFT. WILL CONTINUE TO MONITOR AND REPORT TO NEXT SHIFT.
[2021-07-27 07:59] LABS: BASOPHILS ABSOLUTE AUTO 0.01 K/mm3 (0.00-0.23); BASOPHILS PERCENT AUTO 0 % (0-2); EOSINOPHILS ABSOLUTE AUTO 0.05 K/mm3 (0.00-0.68); EOSINOPHILS PERCENT AUTO 1 % (0-6); Hematocrit 25.9 % (37.0-53.0); Hemoglobin 8.4 g/dL (13.5-17.5); IMMATURE GRAN ABSOLUTE AUTO 0.03 K/mm3 (0.00-0.10); IMMATURE GRAN PERCENT AUTO 1 % (0-1); LYMPHOCYTES ABSOLUTE AUTO 0.45 K/mm3 (0.84-5.20); LYMPHOCYTES PERCENT AUTO 8 % (21-46); MONOCYTES ABSOLUTE AUTO 0.63 K/mm3 (0.16-1.47); MONOCYTES PERCENT AUTO 11 % (4-13); Mean Corpuscular HGB 32.3 pg (26.0-34.0); Mean Corpuscular HGB Conc 32.4 g/dL (31.5-36.5); Mean Corpuscular Volume 100 fL (80-100); Mean Platelet Volume 8.8 fL (9.1-12.4); NEUTROPHILS PERCENT AUTO 79 % (41-73); Platelet Count 332 K/mm3 (150-400); RDW Coefficient Variation 20.5 % (11.7-14.2); RDW Standard Deviation 72.2 fL (35.1-46.3); White Blood Cell Count 5.67 K/mm3 (4.00-11.30)
[2021-07-27 08:16] LABS: Albumin, Blood 2.1 g/dL (3.4-5.0); Anion Gap 5 mmol/L (6-16); Blood Urea Nitrogen 2 mg/dL (8-24); Bun/Creatinine Ratio 3.9 (12.0-20.0); CO2, Blood 25 mmol/L (21-32); Calcium, Blood 7.8 mg/dL (8.5-10.1); Chloride, Blood 112 mmol/L (98-108); Creatinine, Blood 0.51 mg/dL (0.60-1.20); Glomerular Filtration Rate >60 (60-); Glucose, Blood 108 mg/dL (70-99); Phosphorus, Blood 2.8 mg/dL (2.5-4.9); Potassium, Blood 3.1 mmol/L (3.5-5.5); Sodium, Blood 142 mmol/L (136-145)
--- NOTE | 2021-07-27 08:36 | NUR ---
ASSUMED CARE OF PATIENT 0700: FOLLOWS COMMANDS, AOX2, COMPLAINS OF HEADACHE, PERCOCET PO GIVEN, HTN 160S MD AWARE, SR 80S, +2/+1 PULSES, NO ABDOMINAL PAIN CURRENTLY, AUDIBLE BOWELS, UOP ADEQUATE CRUZ CLEAR/YELLOW, NS 150ML/HR, WILL CONTINUE TO MONITOR.
--- NOTE | 2021-07-27 17:19 | NUR ---
AOX2 THIS SHIFT, COMPLAINS OF CHRONIC HEADACHE 8-10 PAIN SCALE, PERCOCET X2 AND FENT 50 X2 GIVEN WITH LITTLE EFFECT, NSR 80S, TELE DC'D MADE MED STATUS, HTN 160S HYDRALAZINE 10MG GIVEN ONCE WITH SOME RESOLUTION <160 SBP, TITRATED TO RA TOLERATING SATS WNL, WORKED WITH OT, PHONE CALL WITH SON PATIENT APPEARED APPRECIATIVE OF CALL, CRUZ ADEQUATE UOP CLEAR/YELLOW, , INITIATED BLADDER TRAINING, CONTINUE TO MONITOR AND REPORT TO NIGHT RN.
--- NOTE | 2021-07-27 19:30 | NUR ---
ASSUMED CARE OF PATIENT. HIS SON MYRIAM CALLED AND ASKED ABOUT HIS PLAN FOR GOING HOME HE IS CONCERNED ABOUT THE STAIRS AND GETTING RAY BACK IN HIS APARTMENT. LOTS OF QUESTIONS BY MYRIAM. RAY IS TURNED ON HIS SIDE AND RESTING QUIETLY SO THE PHONE CALL IS NOT SENT IN THE ROOM. TRIED TO ANSWER ALL OF MYRIAM'S CONCERNS.
--- NOTE | 2021-07-27 20:30 | NUR ---
DURING HIS INITIAL ASSESSMENT THE LEFT FOREARM IV SITE WAS NOTED TO BE LEAKING AND UNCOMFORTABLE TO THE PATIENT. THE IV WAS DC'D, INTACT. UBNABLE TO LOCATE THE DOCUMENTATION FOR THIS SITE. SO RAY WITH ONE IV CURRENTLY, RIGHT FOREARM WITH NS @ 100ML/HR.
--- NOTE | 2021-07-27 20:30 | NUR ---
RAY IS COMPLAINING OF BEING COLD, TEMP TAKEN 101.4. TYLENOL AND PAIN MEDS GIVEN PER HIS REQUEST FOR COMPLAINTS OF HIS HEAD HURTING "EXCRUCIATING". HIS SKIN IS FLUSHED AND WARM TO THE TOUCH. LUNGS CLEAR, RHONCHI IN THE RIGHT BASE. NO COUGH, TAKING PO FLUIDS WELL, DENIES ANY ABDOMINAL PAIN OR DISCOMFORT. STATES THAT HE IS GOING HOME TOMORROW. HE IS IN GOOD SPIRITS, ENGAGING WITH STAFF. REPOSITIONED IN BED AND ENCOURAGED TO REST TO HELP HIS HEAD.
--- NOTE | 2021-07-27 21:15 | NUR ---
RAY WAS HOLLERING OUT "HEY, HEY". WENT IN TO CHECK ON HIM, HE IS FLAILING HIS ARMS AROUND, TRYING TO SIT UP AND LAY DOWN AND RESTLESS. "I JUST DON'T FEEL GOOD!" ASKED HOW HE MEANS? REMINDED THAT HE WAS JUST MEDICATED FOR HIS ELEVATED TEMPERATURE AND FOR PAIN CONTROL, ASKED HIM TO SLOW HIS BREATHING AND USE WORDS TO COMMUNICATE. HE BEGINS TO SAY HE IS CONCERNED ABOUT GOING HOME, THAT HE IS WORRIED ABOUT HIS STEP SON AND HIS CARE FOR HIM, THAT HE ISN'T SURE HE WANTS TO GO TO THE CUSTODIAL HIS EX- (MYRIAM'S MOM) IS THERE AND THEY DON'T GET ALONG. JUST RAMBLING. ENCOURAGED TO SLOW DOWN, BREATHE DEEPLY. ATIVAN 1MG OBTAINED AND GIVEN. PT BEGINS TO CALM, REASSURANCE GIVEN. FAN AT BEDSIDE. PT EXPRESSED HE IS CALMING DOWN. WOULD LIKE THE DOOR TO HIS ROOM TO REMAIN OPEN HE FEELS CLOSED IN.
--- NOTE | 2021-07-28 01:18 | NUR ---
PT IS SITTING UPRIGHT IN THE BED, LEGS OFF, FEELING "FRUSTRATED AND ANXIOUS" MEDICATED WITH ATIVAN 2MG PER MAR. HE JUST CAN'T REST AND FEEL COMFORTABLE. CONTINUE TO REASSURE AND ENCOURAGE PATIENT.
--- NOTE | 2021-07-28 04:52 | NUR ---
WENT IN FOR AM VITAL SIGNS, PT VERY DISORIENTED WITH AROUSING FROM SLEEP. HIS VITAL SIGNS STABLE, NO COMPLAINTS AND PT BACK TO SLEEP.
[2021-07-28 08:37] LABS: Hematocrit 25.7 % (37.0-53.0); Hemoglobin 8.6 g/dL (13.5-17.5); Mean Corpuscular HGB 33.1 pg (26.0-34.0); Mean Corpuscular HGB Conc 33.5 g/dL (31.5-36.5); Mean Corpuscular Volume 99 fL (80-100); Mean Platelet Volume 9.2 fL (9.1-12.4); Platelet Count 290 K/mm3 (150-400); RDW Coefficient Variation 19.8 % (11.7-14.2); RDW Standard Deviation 69.2 fL (35.1-46.3); White Blood Cell Count 5.78 K/mm3 (4.00-11.30)
[2021-07-28 08:50] LABS: Albumin, Blood 2.1 g/dL (3.4-5.0); Anion Gap 4 mmol/L (6-16); Blood Urea Nitrogen 2 mg/dL (8-24); Bun/Creatinine Ratio 3.6 (12.0-20.0); CO2, Blood 26 mmol/L (21-32); Calcium, Blood 7.3 mg/dL (8.5-10.1); Chloride, Blood 109 mmol/L (98-108); Creatinine, Blood 0.55 mg/dL (0.60-1.20); Glomerular Filtration Rate >60 (60-); Glucose, Blood 102 mg/dL (70-99); Phosphorus, Blood 2.5 mg/dL (2.5-4.9); Sodium, Blood 139 mmol/L (136-145)
[2021-07-28 09:24] LABS: BASOPHILS PERCENT MAN 0 % (0-2); EOSINOPHILS ABSOLUTE MAN 0.05 K/mm3 (0.00-0.68); EOSINOPHILS PERCENT MAN 1 % (0-6); LYMPHOCYTES ABSOLUTE MAN 0.46 K/mm3 (0.84-5.20); LYMPHOCYTES PERCENT MAN 8 % (21-46); MONOCYTES ABSOLUTE MAN 0.63 K/mm3 (0.16-1.47); MONOCYTES PERCENT MAN 11 % (4-13); NEUTROPHILS ABSOLUTE MAN 4.62 K/mm3 (1.96-9.15); SEG NEUTROPHILS PERCENT MAN 80 % (41-73); TOTAL CELLS COUNTED 100
[2021-07-28] MEDS ORDERED: ACET500 PO (11:28)
[2021-07-28] MEDS ORDERED: MIDO5 PO (11:30)
[2021-07-28] MEDS ORDERED: CIPR500 PO (11:31)
[2021-07-28] MEDS ORDERED: METR500 PO (11:31)
[2021-07-28] MEDS ORDERED: PANT20 PO (11:32)
[2021-07-28] MEDS ORDERED: ONDA4ODT MM (11:32)
[2021-07-28] MEDS ORDERED: POTCHL20ER PO (11:32)
--- NOTE | 2021-07-28 12:09 | NUR ---
PT'S SON WAS CALLED TO BE INFORMED ABOUT DC ORDERS. SON WAS CONCERNED THAT HIS FATHER WOULD NOT BE ABLE TO MAKE IT UP 2 FLIGHTS OF STAIRS TO GET HOME. RN CALLED PHYSICAL THERAPIST WHO FELT CONFIDENT THAT PT WOULD BE ABLE TO MAKE IT UP THE STAIRS. SON STATED HE WANTED TO EVALUATE PT FOR HIMSELF BEFORE HE WOULD TAKE HIM HOME. CR[employer] POLICE OFFICER AWARE.
--- NOTE | 2021-07-28 14:28 | NUR ---
RN REMOVED PT'S IV, DISCUSSED DC INSTRUCTIONS WITH PT AND SON AT BEDSIDE. PT'S SON WAS MOST CURIOUS ABOUT ADVANCING PT'S DIET. EDUCATED HIM ABOUT ADVANCING FROM FULL TO REGULAR CONSISTENCY. PT'S SON WATCHED HIM AMBULATE AROUND ROOM AND FELT COMFORTABLE TAKING HIM HOME. ESCORTED OUT BY STAFF VIA WHEEL CHAIR. NO FURTHER NEEDS
--- NOTE | 2021-07-29 09:43 | NUR ---
DISCHARGE MEDS RECEIVED CALL FROM PT'S SON STATING PHARMACY DID NOT RECEIVE DISCHARGE MEDICATION ORDERS. DISCHARGE MED REC. [facility] AT THIS TIME PER REQUEST.
== END 2021-07-28 14:25 | disposition home or self-care (01) | DRG 393 ==
LOC: ER 07:20 → PCU 10:50 → ERHOLD 10:50 → ICUW 10:50 → PCU 15:12 → ICUW 07-24 21:33
PROVIDERS: Emergency Medicine; Family Medicine; Internal Medicine; Student in an Organized Health Care Education/Training Program; ADMIT Internal Medicine
PROC: 30233N1 Transfusion of Nonautologous Red Blood Cells into Peripheral Vein, Percutaneous Approach (ICD-10-PCS; 2021-07-23)
PROC: 0DJD8ZZ Inspection of Lower Intestinal Tract, Via Natural or Artificial Opening Endoscopic (ICD-10-PCS; principal; 2021-07-24 12:30)
PROC: 0DJ08ZZ Inspection of Upper Intestinal Tract, Via Natural or Artificial Opening Endoscopic (ICD-10-PCS; 2021-07-24 12:30)
DX: K55.9 Vascular disorder of intestine, unspecified (principal); G93.41 Metabolic encephalopathy; K92.1 Melena; D62 Acute posthemorrhagic anemia; Z20.822 Contact with and (suspected) exposure to COVID-19; D53.9 Nutritional anemia, unspecified; I10 Essential (primary) hypertension; I73.9 Peripheral vascular disease, unspecified; F10.20 Alcohol dependence, uncomplicated; F41.8 Other specified anxiety disorders; F15.11 Other stimulant abuse, in remission; K44.9 Diaphragmatic hernia without obstruction or gangrene; I25.10 Atherosclerotic heart disease of native coronary artery without angina pectoris; G43.909 Migraine, unspecified, not intractable, without status migrainosus; F01.50 Vascular dementia, unspecified severity, without behavioral disturbance, psychotic disturbance, mood disturbance, and anxiety; Z79.82 Long term (current) use of aspirin; Z79.899 Other long term (current) drug therapy; Z28.21 Immunization not carried out because of patient refusal; Z90.49 Acquired absence of other specified parts of digestive tract; Z88.2 Allergy status to sulfonamides; Z91.09 Other allergy status, other than to drugs and biological substances; Z86.19 Personal history of other infectious and parasitic diseases; Z86.73 Personal history of transient ischemic attack (TIA), and cerebral infarction without residual deficits
CPT/HCPCS: 0097U; 0241U; 36415; 36430; 70450; 71045; 74174; 74177; 80053; 80069; 81001; 82140; 82607; 82746; 84443; 85014; 85018; 85025; 86317; 86704; 86708; 86803; 86850; 86900; 86901; 86920; 86923; 87340; 93005; 93010; 96374; 96375; 97110; 97162; 97166; 97530; 97535; 99285-25; A9270; C9113; G0480; J0744; J1170; J1980; J2060; J2405; J2704; J3010; J3480; J7030; J7050; P9016; Q9967

== ENCOUNTER 2021-10-01 01:33 | Observation (INO) | payer MEDICARE, OTHER ==
[~2021-10-01] VITALS: Ht 175.3 cm; Wt 71.0 kg
[~2021-10-01 01:33] MED LIST changes: +ACET500 PO; +CIPR500 PO; +METR500 PO; +MIDO5 PO; +PANT20 PO; +POTCHL20ER PO
[2021-10-01 02:54] LABS: BASOPHILS ABSOLUTE AUTO 0.03 K/mm3 (0.00-0.23); BASOPHILS PERCENT AUTO 0 % (0-2); EOSINOPHILS ABSOLUTE AUTO 0.08 K/mm3 (0.00-0.68); EOSINOPHILS PERCENT AUTO 1 % (0-6); Hematocrit 34.6 % (37.0-53.0); Hemoglobin 11.2 g/dL (13.5-17.5); IMMATURE GRAN ABSOLUTE AUTO 0.08 K/mm3 (0.00-0.10); IMMATURE GRAN PERCENT AUTO 1 % (0-1); LYMPHOCYTES ABSOLUTE AUTO 1.99 K/mm3 (0.84-5.20); LYMPHOCYTES PERCENT AUTO 17 % (21-46); MONOCYTES ABSOLUTE AUTO 1.25 K/mm3 (0.16-1.47); MONOCYTES PERCENT AUTO 11 % (4-13); Mean Corpuscular HGB 31.6 pg (26.0-34.0); Mean Corpuscular HGB Conc 32.4 g/dL (31.5-36.5); Mean Corpuscular Volume 98 fL (80-100); Mean Platelet Volume 9.8 fL (9.1-12.4); NEUTROPHILS PERCENT AUTO 71 % (41-73); Platelet Count 500 K/mm3 (150-400); RDW Standard Deviation 65.3 fL (35.1-46.3); Red Blood Cell Count 3.54 M/mm3 (4.30-5.90); White Blood Cell Count 11.93 K/mm3 (4.00-11.30)
[2021-10-01 03:07] LABS: Alanine Aminotransfer (ALT/SGP 29 U/L (12-78); Albumin, Blood 3.5 g/dL (3.4-5.0); Alk Phos 82 U/L (50-136); Anion Gap 12 mmol/L (6-16); Aspartate Aminotrans (AST/SGOT 12 U/L (12-37); Bilirubin, Total 0.2 mg/dL (0.1-1.0); Blood Urea Nitrogen 17 mg/dL (8-24); Bun/Creatinine Ratio 21.2 (12.0-20.0); CO2, Blood 24 mmol/L (21-32); Calcium, Blood 9.6 mg/dL (8.5-10.1); Chloride, Blood 103 mmol/L (98-108); Globulin, Blood 3.5 g/dL (2.2-4.0); Glomerular Filtration Rate >60 (60-); Glucose, Blood 118 mg/dL (70-99); Sodium, Blood 139 mmol/L (136-145)
[2021-10-01 03:26] LABS: International Normalized Ratio 1.04; Prothrombin Time Results 10.9 Sec (9.7-11.5)
[2021-10-01 05:50] LABS: Hematocrit 34.8 % (37.0-53.0); Hemoglobin 11.2 g/dL (13.5-17.5); Mean Corpuscular HGB 31.3 pg (26.0-34.0); Mean Corpuscular HGB Conc 32.2 g/dL (31.5-36.5); Mean Corpuscular Volume 97 fL (80-100); Mean Platelet Volume 9.4 fL (9.1-12.4); Platelet Count 452 K/mm3 (150-400); RDW Coefficient Variation 18.2 % (11.7-14.2); RDW Standard Deviation 65.1 fL (35.1-46.3); Red Blood Cell Count 3.58 M/mm3 (4.30-5.90); White Blood Cell Count 9.28 K/mm3 (4.00-11.30)
[2021-10-01 06:08] LABS: Anion Gap 6 mmol/L (6-16); Blood Urea Nitrogen 14 mg/dL (8-24); Bun/Creatinine Ratio 18.6 (12.0-20.0); CO2, Blood 27 mmol/L (21-32); Calcium, Blood 9.2 mg/dL (8.5-10.1); Chloride, Blood 109 mmol/L (98-108); Creatinine, Blood 0.75 mg/dL (0.60-1.20); Glomerular Filtration Rate >60 (60-); Glucose, Blood 128 mg/dL (70-99); Potassium, Blood 3.8 mmol/L (3.5-5.5); Sodium, Blood 142 mmol/L (136-145)
[2021-10-01 09:26] LABS: Hematocrit 34.2 % (37.0-53.0); Hemoglobin 10.9 g/dL (13.5-17.5)
[2021-10-01 14:29] LABS: Hematocrit 32.4 % (37.0-53.0); Hemoglobin 10.2 g/dL (13.5-17.5)
[2021-10-01 16:25] LABS: Influenza A, PCR NEGATIVE (NEGATIVE); Influenza B, PCR NEGATIVE (NEGATIVE); Resp Syncytial Virus, PCR NEGATIVE (NEGATIVE); SARS-Cov-2 (COVID-19) PCR, MMC NEGATIVE (NEGATIVE)
--- NOTE | 2021-10-01 17:49 | NUR ---
SHIFT SUMMARY PATIENT DENIES PAIN, NAUSEA, AND SHORTNESS OF BREATH. PATIENT IS SBA FOR TRANSFERS. PATIENT ADMITTED AT 1145 FROM ER. PATIENT SETTLED INTO ROOM. PATIENT CHANGED TO CLEAR LIQUID DIET. PATIENT VERY HAPPY TO BE ABL TO EAT SOMETHING. DR. NEFF CONSULTED. PLAN IS TO DO PROCEDURES TOMORROW. NPO AT MIDNIGHT. PATIENT HAS NOT HAD ANY BLACK STOOLS THIS SHIFT. PATIENT HAD PROTONIX DRIP GOING AT 10MLS/HR. AT PATIENT REQUEST, PATIENT SON IS UPDATED. PATIENT IS PLEASANT AND COOPERATIVE WITH CARE.
[2021-10-01 20:17] LABS: Hematocrit 31.8 % (37.0-53.0); Hemoglobin 9.8 g/dL (13.5-17.5)
--- NOTE | 2021-10-01 20:40 | NUR ---
PT TX TO 338, REPORT GIVEN TO EDEN HAYES.
--- NOTE | 2021-10-01 23:35 | NUR ---
PT TRANSFERED FROM [facility]. REPORT FROM [facility]. PT IN NO DISTRESS. PT DENIES ANY PAIN OR SOB.
[2021-10-02 02:07] LABS: Hematocrit 30.7 % (37.0-53.0); Hemoglobin 9.8 g/dL (13.5-17.5)
--- NOTE | 2021-10-02 04:54 | NUR ---
SUMMARY PT ARRIVED AT 338 AT 2100. PREVIOUS NURSE COMPLETED SHIFT ASSESSMENT. ATTEMPTED TO SLEEP WITH LITTLE SUCCESS. PT HAS NOT HAD ANY BOWEL MOVEMENTS THIS SHIFT. NO COMPLAINTS OF ABD PAIN IN ANY NATURE. WCTM.
--- NOTE | 2021-10-02 07:49 | NUR ---
MD CALL BP 182/92 AUTOMATIC CUFF. RECHECKED MANUAL BP. PT SAID NORMALLY ON BP MEDS AT HOME. MED REC SHOWS LISINOPRIL. DR BARRIENTOS CALLED AND INFORMED.
--- NOTE | 2021-10-02 11:55 | NUR ---
AM NOTE MR MARVIN IS OX4. [facility]. C/O CHRONIC VACA, TYLENOL HELPED. NPO FOR SYGMOIDOSCOPY TODAY. BP ELEVATED, DAILY LISINOPRIL GIVEN AFTER SEEN BY DR BARRIENTOS. NO BM THIS SHIFT. PROTONIX GTT/IVF CONTINUE. UP TO BR, SB ASSIST. STEADY GAIT. CALL LIGHT IN REACH, BED LOW.
--- NOTE | 2021-10-02 12:40 | NUR ---
10/02/21 1239 Marybeth Powell History, Chart, Medications and Allergies reviewed before start of procedure. Patient confirms NPO status and agrees with scheduled surgery. 3-LEAD EKG REVIEWED WITH PHYSICIAN PRIOR TO START OF PROCEDURE. MONITOR INTACT WITH CONTINUOUS PULSE OXIMETRY AND INTERMITTENT BP. PATIENT DETERMINED TO BE ASA APPROPRIATE FOR MAC W/ DR MARTINEZ
--- NOTE | 2021-10-02 13:57 | NUR ---
RN NOTE MR WONG IS BACK ON MEDICAL UNIT S/P ENDOSCOPY. Q 15 MINUTE VS BEING DONE. PT AWAKE, C/O STOMACH CRAMPS THAT FEEL LIKE GAS. GIVEN PO FLUIDS AND LUNCH TRAY REQUESTED. POSSIBLE DISCHARGE TODAY PER OR NURSE REPORT.
--- NOTE | 2021-10-02 16:48 | NUR ---
MD CALL LARGE SOFT VERY DARK STOOL. BP DROP , DOUBLE CHECKED 30 MINS POST BM AND MANUALLY. DR BARRIENTOS INFORMED. ORDERS FOR STOOL GUIAC AND STOP IVF.
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
[2021-10-03 05:56] LABS: BASOPHILS ABSOLUTE AUTO 0.03 K/mm3 (0.00-0.23); BASOPHILS PERCENT AUTO 0 % (0-2); EOSINOPHILS ABSOLUTE AUTO 0.29 K/mm3 (0.00-0.68); EOSINOPHILS PERCENT AUTO 4 % (0-6); Hematocrit 28.9 % (37.0-53.0); Hemoglobin 9.1 g/dL (13.5-17.5); IMMATURE GRAN ABSOLUTE AUTO 0.03 K/mm3 (0.00-0.10); IMMATURE GRAN PERCENT AUTO 0 % (0-1); LYMPHOCYTES ABSOLUTE AUTO 1.55 K/mm3 (0.84-5.20); LYMPHOCYTES PERCENT AUTO 20 % (21-46); MONOCYTES ABSOLUTE AUTO 0.77 K/mm3 (0.16-1.47); MONOCYTES PERCENT AUTO 10 % (4-13); Mean Corpuscular HGB 30.6 pg (26.0-34.0); Mean Corpuscular HGB Conc 31.5 g/dL (31.5-36.5); Mean Corpuscular Volume 97 fL (80-100); Mean Platelet Volume 9.1 fL (9.1-12.4); NEUTROPHILS ABSOLUTE AUTO 4.91 K/mm3 (1.96-9.15); NEUTROPHILS PERCENT AUTO 65 % (41-73); Platelet Count 381 K/mm3 (150-400); RDW Coefficient Variation 17.2 % (11.7-14.2); RDW Standard Deviation 61.1 fL (35.1-46.3); Red Blood Cell Count 2.97 M/mm3 (4.30-5.90); White Blood Cell Count 7.58 K/mm3 (4.00-11.30)
[2021-10-03 08:46] LABS: Stool Occult Blood Guaiac 1 Pos (Neg)
[2021-10-03] MEDS ORDERED: CARAFATE1 GM/10 M1 PO (11:19)
--- NOTE | 2021-10-03 12:41 | NUR ---
DISCHARGE NOTE- PT WAS GIVEN VERBAL AND WRITTEN DISCHARGE INSTRUCTIONS, SON MYRIAM PRESENT FOR DISCHARGE TEACHING. SON INQUIRED ABOUT GI FOLLOW UP. CALLLED GI TO ARRANGE FOLLOW UP THEY WILL CALL THE PT AND SCHEDULE A FOLLOW UP APPOINTMENT. PPT IV AND TELE DC'D AT THHE TIME OF DISCHARGE NO S&S OF DISTRESS NOTED. PT ESCORTED OUT VIA WC.
== END 2021-10-03 12:30 | disposition home or self-care (01) ==
LOC: ER 01:33 → ERHOLD 05:00 → MEDS 05:00
PROVIDERS: Internal Medicine; Student in an Organized Health Care Education/Training Program; ADMIT Internal Medicine
PROC: 0DB78ZX Excision of Stomach, Pylorus, Via Natural or Artificial Opening Endoscopic, Diagnostic (ICD-10-PCS; principal; 2021-10-02 12:15)
PROC: 0DB98ZX Excision of Duodenum, Via Natural or Artificial Opening Endoscopic, Diagnostic (ICD-10-PCS; principal; 2021-10-02 12:15)
PROC: 0DB58ZX Excision of Esophagus, Via Natural or Artificial Opening Endoscopic, Diagnostic (ICD-10-PCS; principal; 2021-10-02 12:15)
PROC: 0DJD8ZZ Inspection of Lower Intestinal Tract, Via Natural or Artificial Opening Endoscopic (ICD-10-PCS; principal; 2021-10-02 12:15)
DX: K20.91 Esophagitis, unspecified with bleeding (principal); K29.81 Duodenitis with bleeding; K29.71 Gastritis, unspecified, with bleeding; K44.9 Diaphragmatic hernia without obstruction or gangrene; D50.0 Iron deficiency anemia secondary to blood loss (chronic); E87.6 Hypokalemia; I25.10 Atherosclerotic heart disease of native coronary artery without angina pectoris; I73.9 Peripheral vascular disease, unspecified; I10 Essential (primary) hypertension; F41.9 Anxiety disorder, unspecified; F32.A Depression, unspecified; E78.5 Hyperlipidemia, unspecified; F15.11 Other stimulant abuse, in remission; Z86.73 Personal history of transient ischemic attack (TIA), and cerebral infarction without residual deficits
CPT/HCPCS: 0241U; 36415; 80048; 80053; 82270; 82272; 83605; 85014; 85018; 85025; 85027; 85610; 85730; 86850; 86900; 86901; 88305; 88312; 88342; 93005; 93010; 96365; 96366; 96376; 99285-25; A9270; C9113; G0378; J2704; J7030; J7120

== ENCOUNTER 2022-04-12 06:02 | Emergency (ER) | payer MEDICARE, OTHER ==
[~2022-04-12] VITALS: Ht 175.3 cm; Wt 74.8 kg
[~2022-04-12 06:02] MED LIST changes: +AMLODIPINE BESY10 MG PO; +BENZTROPINE MESY1 M6 PO; +CARAFATE1 GM/10 M1 PO; +FERROUS SULFAT325 M3 PO; +Midodrine HCl2.5 MG PO; +PLAVIX75 MG PO
[2022-04-12 06:46] LABS: BASOPHILS ABSOLUTE AUTO 0.02 K/mm3 (0.00-0.23); BASOPHILS PERCENT AUTO 0 % (0-2); EOSINOPHILS ABSOLUTE AUTO 0.03 K/mm3 (0.00-0.68); EOSINOPHILS PERCENT AUTO 1 % (0-6); Hematocrit 47.4 % (37.0-53.0); Hemoglobin 15.8 g/dL (13.5-17.5); IMMATURE GRAN ABSOLUTE AUTO 0.02 K/mm3 (0.00-0.10); IMMATURE GRAN PERCENT AUTO 0 % (0-1); LYMPHOCYTES ABSOLUTE AUTO 0.82 K/mm3 (0.84-5.20); LYMPHOCYTES PERCENT AUTO 18 % (21-46); MONOCYTES ABSOLUTE AUTO 0.72 K/mm3 (0.16-1.47); MONOCYTES PERCENT AUTO 16 % (4-13); Mean Corpuscular HGB 32.1 pg (26.0-34.0); Mean Corpuscular HGB Conc 33.3 g/dL (31.5-36.5); Mean Corpuscular Volume 96 fL (80-100); Mean Platelet Volume 9.7 fL (9.1-12.4); NEUTROPHILS ABSOLUTE AUTO 2.96 K/mm3 (1.96-9.15); NEUTROPHILS PERCENT AUTO 65 % (41-73); Platelet Count 311 K/mm3 (150-400); RDW Standard Deviation 53.4 fL (35.1-46.3); Red Blood Cell Count 4.92 M/mm3 (4.30-5.90); White Blood Cell Count 4.57 K/mm3 (4.00-11.30)
[2022-04-12 07:03] LABS: Albumin, Blood 3.6 g/dL (3.4-5.0); Albumin/Globulin Ratio 0.9 (0.8-1.8); Bilirubin, Total 0.2 mg/dL (0.1-1.0); Bun/Creatinine Ratio 14.7 (12.0-20.0); Calcium, Blood 8.5 mg/dL (8.5-10.1); Creatinine, Blood 0.75 mg/dL (0.60-1.20); Globulin, Blood 4.1 g/dL (2.2-4.0); Magnesium, Blood 2.4 mg/dL (1.6-2.4); Potassium, Blood 3.7 mmol/L (3.5-5.5); Total Protein, Blood 7.7 g/dL (6.4-8.2)
[2022-04-12 07:12] LABS: International Normalized Ratio 1.03; Prothrombin Time Results 10.8 Sec (9.7-11.5)
[2022-04-12 07:59] LABS: Influenza A, PCR NEGATIVE (NEGATIVE); Influenza B, PCR NEGATIVE (NEGATIVE); Resp Syncytial Virus, PCR NEGATIVE (NEGATIVE)
[2022-04-12 08:04] LABS: SARS-Cov-2 (COVID-19) PCR, MMC POSITIVE (NEGATIVE)
[2022-04-12] MEDS ORDERED: IBUP400 PO (09:12)
[2022-04-12] MEDS ORDERED: ACET500 PO (09:12)
[2022-04-12] MEDS ORDERED: METO10 PO (09:12)
== END 2022-04-12 10:17 | disposition home or self-care (01) ==
LOC: ER 06:02
PROVIDERS: Student in an Organized Health Care Education/Training Program
DX: U07.1 COVID-19 (principal); R19.5 Other fecal abnormalities; I10 Essential (primary) hypertension; F17.290 Nicotine dependence, other tobacco product, uncomplicated; Z87.19 Personal history of other diseases of the digestive system; Z88.2 Allergy status to sulfonamides; Z91.048 Other nonmedicinal substance allergy status; Z79.899 Other long term (current) drug therapy; Z79.82 Long term (current) use of aspirin
CPT/HCPCS: 0241U; 36415; 80053; 83735; 85025; 85610; 85730; J1885; J2765; J7030

== ENCOUNTER 2023-07-17 09:05 | Emergency (ER) | payer MEDICARE, OTHER ==
[~2023-07-17] VITALS: Ht 175.3 cm; Wt 79.4 kg
[~2023-07-17 09:05] MED LIST changes: +METO10 PO
[2023-07-17] MEDS ORDERED: Mag Hydrox/AL Hydrox/Simeth 30 ML UDC PO ONE (10:00)
[2023-07-17 10:06] LABS: BASOPHILS ABSOLUTE AUTO 0.05 K/mm3 (0.00-0.23); BASOPHILS PERCENT AUTO 0 % (0-2); EOSINOPHILS PERCENT AUTO 0 % (0-6); Hematocrit 51.4 % (37.0-53.0); Hemoglobin 17.8 g/dL (13.5-17.5); IMMATURE GRAN ABSOLUTE AUTO 0.15 K/mm3 (0.00-0.10); IMMATURE GRAN PERCENT AUTO 1 % (0-1); LYMPHOCYTES ABSOLUTE AUTO 0.93 K/mm3 (0.84-5.20); LYMPHOCYTES PERCENT AUTO 4 % (21-46); MONOCYTES ABSOLUTE AUTO 1.67 K/mm3 (0.16-1.47); MONOCYTES PERCENT AUTO 8 % (4-13); Mean Corpuscular HGB 32.9 pg (26.0-34.0); Mean Corpuscular HGB Conc 34.6 g/dL (31.5-36.5); Mean Corpuscular Volume 95 fL (80-100); Mean Platelet Volume 9.7 fL (9.1-12.4); NEUTROPHILS ABSOLUTE AUTO 19.31 K/mm3 (1.96-9.15); NEUTROPHILS PERCENT AUTO 87 % (41-73); Platelet Count 404 K/mm3 (150-400); RDW Standard Deviation 49.4 fL (35.1-46.3); Red Blood Cell Count 5.41 M/mm3 (4.30-5.90); White Blood Cell Count 22.11 K/mm3 (4.00-11.30)
[2023-07-17] MEDS ORDERED: Acetaminophen 500 MG Tab PO ONE (10:30)
[2023-07-17 10:49] LABS: Albumin, Blood 3.8 g/dL (3.4-5.0); Albumin/Globulin Ratio 0.8 (0.8-1.8); Bilirubin, Total 0.7 mg/dL (0.1-1.0); Bun/Creatinine Ratio 21.7 (12.0-20.0); Calcium, Blood 11.1 mg/dL (8.5-10.1); Creatinine, Blood 0.83 mg/dL (0.60-1.20); Globulin, Blood 4.5 g/dL (2.2-4.0); Potassium, Blood 3.6 mmol/L (3.5-5.5); Total Protein, Blood 8.3 g/dL (6.4-8.2)
[2023-07-17] MEDS ORDERED: Ondansetron HCl 2 MG / ML 2ML Vial IV ONE (11:20)
[2023-07-17] MEDS ORDERED: FentaNYL Citrate 50 MCG/ML 2 ML Injection IV ONE (11:35)
[2023-07-17] MEDS ORDERED: PANT40 PO (13:08)
[2023-07-17 13:20] VITALS: BP 151/89
== END 2023-07-17 13:21 | disposition home or self-care (01) ==
LOC: ER 09:05
PROVIDERS: Student in an Organized Health Care Education/Training Program
DX: K21.00 Gastro-esophageal reflux disease with esophagitis, without bleeding (principal); F17.290 Nicotine dependence, other tobacco product, uncomplicated; Z88.2 Allergy status to sulfonamides; Z91.048 Other nonmedicinal substance allergy status; Z79.899 Other long term (current) drug therapy; Z79.82 Long term (current) use of aspirin
CPT/HCPCS: 36415; 71045; 74177; 80053; 83690; 84484; 85025; 93005; 93010; 96374-59; 96375; 99284-25; A9270; J2405; J3010; Q9967

== ENCOUNTER → 2023-07-18 | Outpatient (CLI) | payer MEDICARE, OTHER ==
[~2023-07-18] MED LIST changes: +PANT40 PO
[2023-07-18 16:47] LABS: BASOPHILS ABSOLUTE AUTO 0.05 K/mm3 (0.00-0.23); BASOPHILS PERCENT AUTO 0 % (0-2); EOSINOPHILS ABSOLUTE AUTO 0.02 K/mm3 (0.00-0.68); EOSINOPHILS PERCENT AUTO 0 % (0-6); Hematocrit 48.7 % (37.0-53.0); Hemoglobin 16.2 g/dL (13.5-17.5); IMMATURE GRAN ABSOLUTE AUTO 0.08 K/mm3 (0.00-0.10); IMMATURE GRAN PERCENT AUTO 0 % (0-1); LYMPHOCYTES ABSOLUTE AUTO 1.56 K/mm3 (0.84-5.20); LYMPHOCYTES PERCENT AUTO 8 % (21-46); MONOCYTES ABSOLUTE AUTO 1.71 K/mm3 (0.16-1.47); MONOCYTES PERCENT AUTO 9 % (4-13); Mean Corpuscular HGB 32.5 pg (26.0-34.0); Mean Corpuscular HGB Conc 33.3 g/dL (31.5-36.5); Mean Corpuscular Volume 98 fL (80-100); Mean Platelet Volume 9.7 fL (9.1-12.4); NEUTROPHILS ABSOLUTE AUTO 15.85 K/mm3 (1.96-9.15); NEUTROPHILS PERCENT AUTO 82 % (41-73); Platelet Count 343 K/mm3 (150-400); RDW Coefficient Variation 14.3 % (11.7-14.2); RDW Standard Deviation 51.5 fL (35.1-46.3); Red Blood Cell Count 4.99 M/mm3 (4.30-5.90); White Blood Cell Count 19.27 K/mm3 (4.00-11.30)
[2023-07-18 17:20] LABS: Albumin, Blood 3.4 g/dL (3.4-5.0); Albumin/Globulin Ratio 0.8 (0.8-1.8); Bilirubin, Total 0.4 mg/dL (0.1-1.0); Bun/Creatinine Ratio 16.5 (12.0-20.0); Calcium, Blood 9.9 mg/dL (8.5-10.1); Creatinine, Blood 1.33 mg/dL (0.60-1.20); Globulin, Blood 4.4 g/dL (2.2-4.0); Potassium, Blood 3.5 mmol/L (3.5-5.5); Total Protein, Blood 7.8 g/dL (6.4-8.2)
== END | disposition home or self-care (01) ==
LOC: LAB SHORT 16:40 → LAB 16:40
PROVIDERS: Physician Assistant Medical
DX: R10.13 Epigastric pain (principal); R07.9 Chest pain, unspecified
CPT/HCPCS: 80053; 83690; 84484; 85025

== ENCOUNTER 2023-09-15 08:31 | Emergency (ER) | payer MEDICARE, OTHER ==
[~2023-09-15] VITALS: Ht 175.3 cm; Wt 74.8 kg
[2023-09-15] MEDS ORDERED: NS 1,000 ML IV SCH (09:10)
[2023-09-15] MEDS ORDERED: Acetaminophen 325 MG TABLET PO ONE (09:10)
[2023-09-15] MEDS ORDERED: Ondansetron HCl 2 MG / ML 2ML Vial IV ONE ×2 (09:10→11:35)
[2023-09-15 09:22] LABS: BASOPHILS ABSOLUTE AUTO 0.03 K/mm3 (0.00-0.23); BASOPHILS PERCENT AUTO 0 % (0-2); EOSINOPHILS PERCENT AUTO 0 % (0-6); Hematocrit 48.3 % (37.0-53.0); Hemoglobin 16.5 g/dL (13.5-17.5); IMMATURE GRAN ABSOLUTE AUTO 0.08 K/mm3 (0.00-0.10); IMMATURE GRAN PERCENT AUTO 1 % (0-1); LYMPHOCYTES ABSOLUTE AUTO 0.89 K/mm3 (0.84-5.20); LYMPHOCYTES PERCENT AUTO 5 % (21-46); MONOCYTES ABSOLUTE AUTO 1.03 K/mm3 (0.16-1.47); MONOCYTES PERCENT AUTO 6 % (4-13); Mean Corpuscular HGB 31.6 pg (26.0-34.0); Mean Corpuscular HGB Conc 34.2 g/dL (31.5-36.5); Mean Corpuscular Volume 93 fL (80-100); Mean Platelet Volume 9.3 fL (9.1-12.4); NEUTROPHILS ABSOLUTE AUTO 15.38 K/mm3 (1.96-9.15); NEUTROPHILS PERCENT AUTO 88 % (41-73); Platelet Count 492 K/mm3 (150-400); Red Blood Cell Count 5.22 M/mm3 (4.30-5.90); White Blood Cell Count 17.41 K/mm3 (4.00-11.30)
[2023-09-15 10:00] LABS: Albumin, Blood 3.9 g/dL (3.4-5.0); Albumin/Globulin Ratio 0.9 (0.8-1.8); Bilirubin, Total 0.5 mg/dL (0.1-1.0); Bun/Creatinine Ratio 24.7 (12.0-20.0); Calcium, Blood 10.1 mg/dL (8.5-10.1); Creatinine, Blood 0.89 mg/dL (0.60-1.20); Globulin, Blood 4.4 g/dL (2.2-4.0); Potassium, Blood 3.9 mmol/L (3.5-5.5); Total Protein, Blood 8.3 g/dL (6.4-8.2)
[2023-09-15] MEDS ORDERED: Mag Hydrox/AL Hydrox/Simeth 30 ML UDC PO ONE (12:30)
[2023-09-15] MEDS ORDERED: Lidocaine 2% Viscous Soln 15 ML UDC PO ONE (12:30)
[2023-09-15] MEDS ORDERED: PROM25 PO (12:32)
[2023-09-15] MEDS ORDERED: OMEP20ER PO (12:32)
[2023-09-15 13:40] VITALS: BP 142/81
[2023-09-16] MEDS ORDERED: ALBU90OI INH (12:50)
== END 2023-09-15 13:53 | disposition home or self-care (01) ==
LOC: ER 08:31
PROVIDERS: Emergency Medicine
DX: R10.9 Unspecified abdominal pain (principal); Z88.8 Allergy status to other drugs, medicaments and biological substances; Z88.2 Allergy status to sulfonamides; Z79.899 Other long term (current) drug therapy
CPT/HCPCS: 80053; 83690; 84484; 85025; 96361; 96374; 96376; 99285-25; A9270; J2405; J7030

== ENCOUNTER 2023-09-16 09:18 | Emergency (ER) | payer MEDICARE, OTHER ==
[~2023-09-16] VITALS: Ht 175.3 cm; Wt 81.7 kg
[~2023-09-16 09:18] MED LIST changes: +OMEP20ER PO; +PROM25 PO
[2023-09-16 09:50] LABS: BASOPHILS ABSOLUTE AUTO 0.04 K/mm3 (0.00-0.23); BASOPHILS PERCENT AUTO 0 % (0-2); EOSINOPHILS ABSOLUTE AUTO 0.05 K/mm3 (0.00-0.68); EOSINOPHILS PERCENT AUTO 0 % (0-6); Hematocrit 39.1 % (37.0-53.0); IMMATURE GRAN ABSOLUTE AUTO 0.06 K/mm3 (0.00-0.10); IMMATURE GRAN PERCENT AUTO 0 % (0-1); LYMPHOCYTES ABSOLUTE AUTO 1.21 K/mm3 (0.84-5.20); LYMPHOCYTES PERCENT AUTO 7 % (21-46); MONOCYTES ABSOLUTE AUTO 1.42 K/mm3 (0.16-1.47); MONOCYTES PERCENT AUTO 8 % (4-13); Mean Corpuscular HGB 31.3 pg (26.0-34.0); Mean Corpuscular HGB Conc 33.2 g/dL (31.5-36.5); Mean Corpuscular Volume 94 fL (80-100); Mean Platelet Volume 9.6 fL (9.1-12.4); NEUTROPHILS ABSOLUTE AUTO 14.95 K/mm3 (1.96-9.15); NEUTROPHILS PERCENT AUTO 84 % (41-73); Platelet Count 379 K/mm3 (150-400); RDW Coefficient Variation 13.2 % (11.7-14.2); RDW Standard Deviation 45.7 fL (35.1-46.3); Red Blood Cell Count 4.15 M/mm3 (4.30-5.90); White Blood Cell Count 17.73 K/mm3 (4.00-11.30)
[2023-09-16 10:12] LABS: Albumin, Blood 3.2 g/dL (3.4-5.0); Albumin/Globulin Ratio 0.9 (0.8-1.8); Bilirubin, Total 0.4 mg/dL (0.1-1.0); Bun/Creatinine Ratio 24.3 (12.0-20.0); Calcium, Blood 8.6 mg/dL (8.5-10.1); Creatinine, Blood 0.74 mg/dL (0.60-1.20); Globulin, Blood 3.5 g/dL (2.2-4.0); Potassium, Blood 3.1 mmol/L (3.5-5.5); Total Protein, Blood 6.7 g/dL (6.4-8.2)
[2023-09-16 10:30] VITALS: BP 142/81
[2023-09-16] MEDS ORDERED: Ondansetron HCl 2 MG / ML 2ML Vial IV ONE (10:35)
[2023-09-16] MEDS ORDERED: HYDROmorphone HCl/Pf 1MG SYR IV ONE (10:40)
[2023-09-16] MEDS ORDERED: NS 1,000 ML IV SCH (10:40)
[2023-09-16] MEDS ORDERED: Potassium Chloride 20 MEQ TabCR PO ONE (12:45)
[2023-09-16] MEDS ORDERED: ALBU90OI INH (12:50)
== END 2023-09-16 13:20 | disposition home or self-care (01) ==
LOC: ER 09:18
PROVIDERS: Emergency Medicine
DX: R06.02 Shortness of breath (principal); Z88.2 Allergy status to sulfonamides; Z88.8 Allergy status to other drugs, medicaments and biological substances; Z79.899 Other long term (current) drug therapy; Z79.82 Long term (current) use of aspirin
CPT/HCPCS: 71046; 71260; 80053; 83690; 83880; 84484; 85025; 85379; 96361; 96374-59; 96375-59; 99285-25; A9270; J1170; J2405; J7030; Q9967